=== PATIENT | female | born 2000 | race Hispanic/Latino ===

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

== ENCOUNTER 2020-03-13 10:10 | Outpatient (CLI) | payer OTHER, SELFPAY ==
[2020-03-13 11:48] LABS: Basophils Absolute Auto 0.1 K/mm3 (0.0-0.1); Basophils Percent Auto 0.4 % (0.2-1.2); Eosinophils Absolute Auto 0.1 K/mm3 (0-0.3); Eosinophils Percent Auto 0.6 % (0-4.4); Hematocrit 31.2 % (37.0-47.0); Hemoglobin 10.5 g/dL (12.0-15.0); Immature Granulocyte Absolute 0.21 K/mm3 (0.00-0.031); Immature Granulocyte Percent A 1.5 % (0-0.5); Lymphocytes Absolute Auto 1.79 K/mm3 (0.9-3.2); Lymphocytes Percent Auto 13.1 % (18.3-44.2); Mean Corpuscular HGB Conc 33.7 g/dl (32-36); Mean Corpuscular Hemoglobin 31.7 pg (26-34); Mean Corpuscular Volume 94.3 fl (80-100); Monocytes Absolute Auto 1.1 K/mm3 (0.1-0.6); Monocytes Percent Auto 7.7 % (2.6-8.5); Neutrophils Absolute Auto 10.5 K/mm3 (1.3-6.7); Neutrophils Percent Auto 76.7 % (45.5-73.1); Platelet Count Result 321 k/mm3 (150-375); Red Blood Count 3.31 M/mm3 (4.2-5.4); Red Cell Distribution Width 11.9 % (11.5-14.5); White Blood Count 13.7 K/mm3 (4.5-10.0)
[2020-03-13 11:58] LABS: Glucose 1 Hour PP 50gm Dose 65 mg/dL
== END 2020-03-13 10:11 | disposition home or self-care (01) ==
PROVIDERS: PCP Student in an Organized Health Care Education/Training Program; Visit Provider Student in an Organized Health Care Education/Training Program
DX: Z34.02 Encounter for supervision of normal first pregnancy, second trimester (principal); Z3A.00 Weeks of gestation of pregnancy not specified
CPT/HCPCS: 36415; 82947; 85025

== ENCOUNTER 2020-05-07 18:46 | Observation (INO) | payer OTHER, SELFPAY ==
[2020-05-07] VITALS (25 sets, daily range): BP systolic 113; BP diastolic 61; PULSE 82–106; TEMP 36.5; O2SAT 98–100; BMI 25.0
--- NOTE | 2020-05-07 20:36 | OBADM ---
This patient, Queenie Ramachandran, admitted to the OB room OB Post 117 for observation. Patient/family oriented to hospital policies and general routines including ID bracelet, bed and alarms, visiting hours, pain management, procedures, bathroom and other care routines, personal items, smoking policy, room service/diet, and visiting hours. Patient/Family are encouraged to report perceived risks to care and to ask questions if they do not understand what they are told or what they should do.
[2020-05-07] MEDS: TERBUTALINE SULFATE 1 MG/ML VIAL 0.25 MG SUB-Q (22:33)
[2020-05-07 22:59] LABS: Add Urine Microscopic? YES; Appearance Urine Clear (Clear); Bacteria Urine Trace /hpf; Bilirubin Urine Negative (Negative); Blood Urine 2+ (Negative); Color Urine Straw (Yellow); Glucose Urine UA Negative (Negative); Ketones Urine Negative (Negative); Leukocyte Esterase Ur 3+ LEU/UL (Negative); Nitrate Urine Negative (Negative); Protein Urine Negative (Negative); Specific Grav Ur 1.005 (1.001-1.035); Squamous Epithelial Cell Urine Occasional /hpf (Few); Urobilinogen Urine Negative mg/dL (<2.0)
[2020-05-08 00:04] VITALS: PULSE 88; O2SAT 98
[2020-05-08 00:09] VITALS: PULSE 95; O2SAT 97
[2020-05-08 00:14] VITALS: PULSE 87; O2SAT 98
--- NOTE | 2020-06-06 16:20 | PM.OBTRLD ---
OB - Triage/Final Diagnosis Evaluation Laboratory results: Laboratory Tests 05/07/20 22:37 Urine Color Straw Urine Appearance Clear Urine pH 7.0 Ur Specific [place] 1.005 Urine Protein Negative Urine Glucose (UA) Negative Urine Ketones Negative Ur Blood (Man) 2+ H Urine Nitrate Negative Urine Bilirubin Negative Urine Urobilinogen Negative Leukocyte Esterase Rfl 3+ H Urine RBC 11-20 H Urine WBC 4-6 H Ur Squamous Epith Cells Occasional Urine Bacteria Trace Final Diagnosis (1) labor in third trimester: Code(s): O60.03 - labor without delivery, third trimester Status: Acute
--- NOTE | 2020-06-06 16:22 | PM.OBTRLD ---
OB - Triage/Final Diagnosis Evaluation Laboratory results: Laboratory Tests 05/07/20 22:37 Urine Color Straw Urine Appearance Clear Urine pH 7.0 Ur Specific [place] 1.005 Urine Protein Negative Urine Glucose (UA) Negative Urine Ketones Negative Ur Blood (Man) 2+ H Urine Nitrate Negative Urine Bilirubin Negative Urine Urobilinogen Negative Leukocyte Esterase Rfl 3+ H Urine RBC 11-20 H Urine WBC 4-6 H Ur Squamous Epith Cells Occasional Urine Bacteria Trace Final Diagnosis (1) labor in third trimester: Code(s): O60.03 - labor without delivery, third trimester Status: Acute
== END 2020-05-08 00:37 | disposition home or self-care (01) ==
PROVIDERS: Admitting Provider Student in an Organized Health Care Education/Training Program; Visit Provider Student in an Organized Health Care Education/Training Program
DX: O26.859 Spotting complicating pregnancy, unspecified trimester (principal); O60.00 Preterm labor without delivery, unspecified trimester; Z3A.00 Weeks of gestation of pregnancy not specified
CPT/HCPCS: 81001; 96372; G0378; G0379; J3105

== ENCOUNTER 2020-05-09 09:19 | Observation (INO) | payer OTHER, SELFPAY ==
[2020-05-09 09:30] VITALS: TEMP 36.5
[2020-05-09 10:00] VITALS: BMI 24.5
--- NOTE | 2020-05-09 10:00 | OBADM ---
This patient, Queenie Ramachandran, admitted to the OB room 117 at 0919 for observation for contractions. Patient/family oriented to hospital policies and general routines including ID bracelet, bed and alarms, visiting hours, pain management, procedures, bathroom and other care routines, personal items, smoking policy, room service/diet, and visiting hours. Patient/Family are encouraged to report perceived risks to care and to ask questions if they do not understand what they are told or what they should do.
[2020-05-09 11:05] VITALS: BP 112/56; PULSE 96
[2020-05-09] MEDS: NIFEdipine 10 MG CAPSULE PO (11:07)
[2020-05-09] MEDS: BETAMETHASONE SOD PHOS/ACETATE 30 MG/5 ML VIAL 12 MG IM (11:10)
[2020-05-09 12:01] VITALS: BP 98/52; PULSE 98
--- NOTE | 2020-05-09 12:27 | PM.OBPNVD ---
OB - PN: Subj Subjective Date/time seen: 05/09/20 12:27 Pt seen at bedside. Contractions have spaced out after Procardia administration. SVE mostly unchanged 2-3/80/-3. s/p Celestone x 1 dose. EFM reassuring. Plan is to d/c pt home in stable condition. Rx for Procardia sent to pharmacy. Pt instructed to return to L&D tomorrow for second dose of Celestone. Reminded of strict pelvic rest. Pt implied understanding. All questions and concerns addressed. OB - PN A/P Time Spent With Patient Time: Total time spent is greater than 50% in coordination of care (as documented) at patient's floor/unit and/or counseling patient:
[2020-05-09 13:18] LABS: Add Urine Microscopic? YES; Appearance Urine Clear (Clear); Bacteria Urine Trace /hpf; Bilirubin Urine Negative (Negative); Blood Urine 1+ (Negative); Color Urine Straw (Yellow); Glucose Urine UA Negative (Negative); Ketones Urine Negative (Negative); Leukocyte Esterase Ur 3+ LEU/UL (Negative); Mucus Urine Rare /lpf; Nitrate Urine Negative (Negative); Protein Urine Negative (Negative); Specific Grav Ur 1.006 (1.001-1.035); Squamous Epithelial Cell Urine Occasional /hpf (Few); Urobilinogen Urine Negative mg/dL (<2.0)
== END 2020-05-09 13:27 | disposition home or self-care (01) ==
PROVIDERS: Admitting Provider Student in an Organized Health Care Education/Training Program; Visit Provider Student in an Organized Health Care Education/Training Program
DX: O60.00 Preterm labor without delivery, unspecified trimester (principal); Z3A.00 Weeks of gestation of pregnancy not specified
CPT/HCPCS: 81001; 87086; 87088; 96372; A9270; G0378; G0379; J0702

== ENCOUNTER 2020-05-10 13:02 | Outpatient (CLI) | payer OTHER, SELFPAY ==
[2020-05-10] MEDS: BETAMETHASONE SOD PHOS/ACETATE 30 MG/5 ML VIAL 12 MG IM (13:28)
== END 2020-05-10 13:30 | disposition home or self-care (01) ==
LOC: ANHOBOP 13:10 → ANHLDR 13:13
PROVIDERS: Visit Provider Student in an Organized Health Care Education/Training Program
DX: Z34.90 Encounter for supervision of normal pregnancy, unspecified, unspecified trimester (principal); Z3A.00 Weeks of gestation of pregnancy not specified
CPT/HCPCS: 96372; 99199; J0702

== ENCOUNTER 2020-05-13 15:41 | Observation (INO) | payer OTHER, SELFPAY ==
--- NOTE | 2020-05-13 15:41 | OBADM ---
This patient, Queenie Ramachandran, admitted to the OB room OB Post 112 for observation. Patient/family oriented to hospital policies and general routines including ID bracelet, bed and alarms, visiting hours, pain management, procedures, bathroom and other care routines, personal items, smoking policy, room service/diet, and visiting hours. Patient/Family are encouraged to report perceived risks to care and to ask questions if they do not understand what they are told or what they should do.
[2020-05-13 16:15] VITALS: BP 111/54; PULSE 107
[2020-05-13 16:30] VITALS: BP 102/51; PULSE 106
[2020-05-13 16:45] VITALS: BP 103/56; PULSE 109
[2020-05-13 17:00] VITALS: BP 98/55; PULSE 111
[2020-05-13 17:15] VITALS: BP 112/67; PULSE 106
[2020-05-13 18:52] VITALS: BMI 25.4
--- NOTE | 2020-06-06 16:23 | PM.OBTRLD ---
OB - Triage/Final Diagnosis Final Diagnosis (1) labor in third trimester: Code(s): O60.03 - labor without delivery, third trimester Status: Acute
== END 2020-05-13 21:30 | disposition home or self-care (01) ==
PROVIDERS: Admitting Provider Student in an Organized Health Care Education/Training Program; Visit Provider Student in an Organized Health Care Education/Training Program
DX: O60.03 Preterm labor without delivery, third trimester (principal); Z3A.00 Weeks of gestation of pregnancy not specified
CPT/HCPCS: G0378; G0379

== ENCOUNTER 2020-05-31 17:16 | Inpatient (IN) | payer OTHER, SELFPAY ==
[2020-05-31] VITALS (9 sets, daily range): BP systolic 113–144; BP diastolic 54–106; PULSE 75–97; RESP 20; TEMP 36.8–37.1; BMI 26.2
--- NOTE | 2020-05-31 17:16 | LDADM ---
This patient, Queenie Ramachandran, was admitted to Labor/Delivery/Recovery 106 on 05/31/20 at 17:16. Plans for labor, pain management and were discussed with patient. Patient/family oriented to hospital policies and general routines including ID bracelet, bed and alarms, visiting hours, pain management, procedures, bathroom and other care routines, personal items, smoking policy, room service/diet and guest tray routines, infant security routines, and visiting hours. Patient/Family are encouraged to report perceived risks to care and to ask questions if they do not understand what they are told or what they should do. See OBIX for further documentation.
[2020-05-31 20:17] LABS: Basophils Absolute Auto 0.1 K/mm3 (0.0-0.1); Basophils Percent Auto 0.4 % (0.2-1.2); Eosinophils Percent Auto 0.4 % (0-4.4); Hematocrit 33.6 % (37.0-47.0); Hemoglobin 11.3 g/dL (12.0-15.0); Immature Granulocyte Absolute 0.07 K/mm3 (0.00-0.031); Immature Granulocyte Percent A 0.6 % (0-0.5); Lymphocytes Absolute Auto 2.51 K/mm3 (0.9-3.2); Lymphocytes Percent Auto 22.1 % (18.3-44.2); Mean Corpuscular HGB Conc 33.6 g/dl (32-36); Mean Corpuscular Volume 89.1 fl (80-100); Mean Platelet Volume 11.5 fl (7.4-10.4); Monocytes Absolute Auto 0.9 K/mm3 (0.1-0.6); Monocytes Percent Auto 8.1 % (2.6-8.5); Neutrophils Absolute Auto 7.8 K/mm3 (1.3-6.7); Neutrophils Percent Auto 68.4 % (45.5-73.1); Platelet Count Result 273 k/mm3 (150-375); Red Blood Count 3.77 M/mm3 (4.2-5.4); Red Cell Distribution Width 13.4 % (11.5-14.5); White Blood Count 11.4 K/mm3 (4.5-10.0)
[2020-05-31 21:11] LABS: HIV 1/2 Ab P24 Ag Result Negative (Negative)
[2020-06-01] VITALS (99 sets, daily range): BP systolic 102–150; BP diastolic 50–90; PULSE 65–119; RESP 18–20; TEMP 36.9–37.6; O2SAT 99–100
[2020-06-01] MEDS: OXYTOCIN 30 UNITS/NS 500 ML 30 UNITS/500 ML BAG IV CONT (01:36)
[2020-06-01] MEDS: LACTATED RINGERS 1,000 ML 125 ML IV CONT ×3 (01:36→08:57)
--- NOTE | 2020-06-01 06:52 | WPDANESEPP ---
Anes - Eval Pre Procedure Procedure: labor epidural Date/Time: 06/01/20 06:52 Surgeon: phoebe triana m.d. Preop Diagnosis: pain during labor Pre Op Diagnosis: Contractions Patient Data Age: 20 Gender: F Height: 1.57 m Weight: 65 kg Last Vital Signs Temp 36.9 C 06/01/20 04:08 Pulse 105 H 06/01/20 06:45 Resp 20 06/01/20 04:08 BP 118/61 06/01/20 06:45 Pulse Ox 99 06/01/20 05:08 Allergies Allergy/AdvReac Type Severity Reaction Status Date / Time No Known Allergies Allergy Verified 05/31/20 21:35 Home Medications Medication Instructions Recorded Confirmed Type PNV cmb#95-ferrous fumarate-FA 1 tablet PO DAILY 11/24/19 05/31/20 History [] breast pump #1 each 05/09/20 05/31/20 Rx Laboratory Tests 05/31/20 05/31/20 05/31/20 20:12 20:12 20:12 WBC 11.4 K/mm3 H K/mm3 (4.5-10.0) RBC 3.77 M/mm3 L M/mm3 (4.2-5.4) Hgb 11.3 g/dL L g/dL (12.0-15.0) Hct 33.6 % L % (37.0-47.0) MCV 89.1 fl fl (80-100) MCH 30.0 pg pg (26-34) MCHC 33.6 g/dl g/dl (32-36) RDW 13.4 % % (11.5-14.5) Plt Count 273 k/mm3 k/mm3 (150-375) MPV 11.5 fl H fl (7.4-10.4) Immature Gran % (Auto) 0.6 % H % (0-0.5) Neut % (Auto) 68.4 % % (45.5-73.1) Lymph % (Auto) 22.1 % % (18.3-44.2) [place] % (Auto) 8.1 % % (2.6-8.5) Eos % (Auto) 0.4 % % (0-4.4) Baso % (Auto) 0.4 % % (0.2-1.2) Lymph # (Auto) 2.51 K/mm3 K/mm3 (0.9-3.2) [place] # (Auto) 0.9 K/mm3 H K/mm3 (0.1-0.6) Eos # (Auto) 0.0 K/mm3 K/mm3 (0-0.3) Baso # (Auto) 0.1 K/mm3 K/mm3 (0.0-0.1) Abs Immat Gran (auto) 0.07 K/mm3 H K/mm3 (0.00-0.031) Absolute Neuts (auto) 7.8 K/mm3 H K/mm3 (1.3-6.7) Absolute Nucleated RBC 0.0 K/mm3 K/mm3 (0.0-0.012) Nucleated RBC % 0.0 % % (0.0-0.2) RPR Pending HIV 1&2 Ab/P24 Ag 4thGn Negative (Negative) Blood Type Antibody Screen 05/31/20 20:12 WBC RBC Hgb Hct MCV MCH MCHC RDW Plt Count MPV Immature Gran % (Auto) Neut % (Auto) Lymph % (Auto) [place] % (Auto) Eos % (Auto) Baso % (Auto) Lymph # (Auto) [place] # (Auto) Eos # (Auto) Baso # (Auto) Abs Immat Gran (auto) Absolute Neuts (auto) Absolute Nucleated RBC Nucleated RBC % RPR HIV 1&2 Ab/P24 Ag 4thGn Blood Type A Positive Antibody Screen Negative Patient hx anesthesia problems: none Family hx anesthesia problems: none PMFSH Social History Social History Smoking status: Former smoker Tobacco type: cigarettes Substance use: never Gender identity (if verbalized by the patient): Female Spiritual care concerns: No Exam Day of Procedure 06/01/20 06:52
--- NOTE | 2020-06-01 08:10 | PM.IMHP ---
H&P: HPI History of Present Illness Date/Time: 06/01/20 08:10 Chief complaint: Contractions Narrative: Queenie Ramachandran is a 20 year old female at 38 weeks admitted in active labor. She had cervical change from 3 to 4cm. LMP 09/08/19 EDC 06/14/20 consistent with a 7 week ultrasound. PNC significant for labor at approximately 34 weeks. She was dilated to 2-3. She did receive Celestone. She is rubella nonimmune. Labs: A+, CF-neg, HgbSol-neg, Vit D-30, Ur Cx-neg, TSH-nl, HIV neg, Varic-Im, Rub-NI, HepbSag-neg, RPR NR, 1 hr- 65, GBS-neg. Review of Systems Review of Systems: All systems reviewed & are unremarkable except as noted in HPI and below Constitutional: Constitutional: Reports no additional constitutional complaints and Denies headache(s) Eyes: Eyes: Denies spots in vision ENT: Reports system reviewed and no additional complaints, except as documented and Denies headache(s) Cardiovascular: Cardiovascular: Denies chest pain and Denies dyspnea Respiratory: Respiratory: Denies dyspnea Gastrointestinal: Gastrointestinal: Reports no additional gastrointestinal complaints Genitourinary: Genitourinary: Reports amenorrhea Musculoskeletal: Musculoskeletal: Reports no additional musculoskeletal complaints Integumentary/Breasts: Skin/Breast: Denies breast mass and Denies rash Neurologic: Denies headache(s) Psychiatric: Psychiatric: Reports no additional psychiatric complaints PMFSH Past Medical History Medical History Anemia 1 Migraines No significant past medical history Surgical History Surgical History No history of previous surgery No significant past surgical history Family History Family History Other Malignant neoplasm of brain Social History Social History Smoking status: Former smoker Tobacco type: cigarettes Substance use: never Gender identity (if verbalized by the patient): Female Spiritual care concerns: No Meds Home Medications and Allergies Home Medications Medication Instructions Recorded Confirmed Type PNV cmb#95-ferrous fumarate-FA 1 tablet PO DAILY 11/24/19 05/31/20 History [] breast pump #1 each 05/09/20 05/31/20 Rx Allergies Allergy/AdvReac Type Severity Reaction Status Date / Time No Known Allergies Allergy Verified 05/31/20 21:35 Vital Signs Vital Signs - 24 hr 05/31/20 18:00 05/31/20 18:08 05/31/20 19:47 Temperature 98.4 F 98.3 F Pulse Rate 97 Respiratory Rate Blood Pressure 120/73 Pulse Oximetry 05/31/20 21:29 05/31/20 21:30 05/31/20 21:45 Temperature Pulse Rate 80 75 84 Respiratory Rate Blood Pressure 113/66 113/54 L 131/106 H Pulse Oximetry 05/31/20 22:00 05/31/20 22:10 05/31/20 23:44 Temperature 98.6 F 98.7 F Pulse Rate 89 96 Respiratory Rate 20 20 Blood Pressure 144/87 H 124/55 L Pulse Oximetry 06/01/20 01:34 06/01/20 02:09 06/01/20 02:15 Temperature Pulse Rate 82 86 90 Respiratory Rate Blood Pressure 130/71 108/59 L 116/60 Pulse Oximetry 06/01/20 02:16 06/01/20 02:30 06/01/20 02:45 Temperature Pulse Rate 87 92 86 Respiratory Rate Blood Pressure 107/52 L 123/67 117/58 L Pulse Oximetry 06/01/20 03:00 06/01/20 03:15 06/01/20 03:30 Temperature Pulse Rate 76 74 89 Respiratory Rate Blood Pressure 102/54 L 103/52 L 113/75 Pulse Oximetry 06/01/20 03:46 06/01/20 04:00 06/01/20 04:08 Temperature 98.5 F Pulse Rate 87 90 Respiratory Rate 20 Blood Pressure 133/71 126/66 Pulse Oximetry 06/01/20 04:15 06/01/20 04:30 06/01/20 04:37 Temperature Pulse Rate 98 93 Respiratory Rate Blood Pressure 116/68 122/70 Pulse Oximetry 99 06/01/20 04:42 06/01/20 04:45 06/01/20 04
--- NOTE | 2020-06-01 08:21 | P.PNOB_ITS ---
OB - PN: Subj Subjective Date/time seen: 06/01/20 08:21 FHT 130, Cat 1, ctx q 1-3, AROM clear 0750, cervix /-1. Continue expectant management. OB - PN: Obj Data Labs CBC & Chem 7: 05/31/20 20:12 Labs: Laboratory Results - last 24 hr 05/31/20 05/31/20 05/31/20 20:12 20:12 20:12 WBC 11.4 H RBC 3.77 L Hgb 11.3 L Hct 33.6 L MCV 89.1 MCH 30.0 MCHC 33.6 RDW 13.4 Plt Count 273 MPV 11.5 H Immature Gran % (Auto) 0.6 H Neut % (Auto) 68.4 Lymph % (Auto) 22.1 [place] % (Auto) 8.1 Eos % (Auto) 0.4 Baso % (Auto) 0.4 Lymph # (Auto) 2.51 [place] # (Auto) 0.9 H Eos # (Auto) 0.0 Baso # (Auto) 0.1 Abs Immat Gran (auto) 0.07 H Absolute Neuts (auto) 7.8 H Absolute Nucleated RBC 0.0 Nucleated RBC % 0.0 HIV 1&2 Ab/P24 Ag 4thGn Negative Blood Type A Positive Antibody Screen Negative OB - PN A/P Time Spent With Patient Time: Total time spent is greater than 50% in coordination of care (as documented) at patient's floor/unit and/or counseling patient:
--- NOTE | 2020-06-01 15:54 | PC.NURSE ---
system assessments and admission catagories done at 1355 were done on the wrong pt. attempt to undo some and unable to do so--christina hernandez rn
--- NOTE | 2020-06-01 18:28 | PM.OBPRVD ---
OB - Delivery Note Procedure Delivery date: 06/01/20 Procedure: Spontaneous vaginal delivery events: Labor < 37 Weeks and Labor Augmentation Intrapartal events: Prolonged Latent Phase Delivery augmentation: rupture of membranes and pitocin Delivery monitor: external FHT and internal uterine Route of delivery: Episiotomy description: None Laceration description: Labial (right superior) Delivery repair: vicryl (3.0 vicryl) Specimen: Yes (Placenta) Estimated blood loss (mL): 350 Anesthesia type: Epidural Disposition: floor Complications: Mild shoulder dystocia relieved with modified Jenni and suprapubic pressure. Left compound hand presentation. Narrative: She was admitted to labor and delivery in labor after dilating from 3-4cm. She was monitored and had frequent irregular contractions. She was started on Pitocin augmentation at 0100 on 06/01/20. She had frequent contraction on small dose of Pitocin and the Pitocin was stopped. On my exam at 0745 cervix 4/90/-1 and AROM was performed. Clear fluid noted. She continue to have frequent contractions with minimal change. Pitocin was started again. She did request and receive epidural. An IUPC was placed due to the frequent contractions and to increase Pitocin appropriately. She started to progress in the active stage approximately 230. She dilated to complete +1 station. She started pushing. At that time her temperature was 100.4 She pushed well and delivered a female infant at 1758. After delivery of head, the head restituted to the left. There was a compound hand presentation and a shoulder dystocia. The shoulder was gradually coming under the pubic bone with modified Jenni and suprapubic pressure. Dystocia lasted approximately 40sec. The rest of the baby was delivered. The baby was placed on maternal abdomen and then shortly taken to warmer. Cord blood and cord gases were obtained. Large placenta delivered intact with trailing membranes. There were a small amount of membranes swept from lower uterine segment. The uterine tone did improve. She sustained a right superior labial minora sulcus tear. Hemostasis obtained with 3 figure of eight stitches of 0.vicryl, EBL 350cc. Patient tolerated procedure well. Baby Date of : 06/01/20 Time of : 17:58 Weeks of gestation at delivery: 38 Weight (pounds): 8 Weight (ounces): 10 presentation: vertex position: Right Occiput Anterior Placenta delivery description: Spontaneous (trailing membranes, small amount of membranes swept from lower uterine segment, uterine tone improved) and Uterine Exploration cord vessel description: 3 Vessels and Clamped/Cut score one minute: 7 score five minutes: 9
[2020-06-01] MEDS: OXYTOCIN 30 UNITS/NS 500 ML 30 UNITS/500 ML BAG 125 UNITS IV CONT (19:12)
[2020-06-01] MEDS: WITCH HAZEL 40 PADS 1 PAD TOPICAL (20:00)
[2020-06-01] MEDS: BENZOCAINE 20% AER SPR (*SP) 56 GM CAN 1 SPRAY TOPICAL (20:00)
[2020-06-01] MEDS: IBUPROFEN 600 MG TABLET PO (20:00)
--- NOTE | 2020-06-01 20:56 | PC.NURSE ---
Patient transferred to post room #292 via wheelchair. Support person present. Oriented to unit, room, information board, rooming in, admission packet and security measures. Patient verbalizes understanding.
[2020-06-02 05:29] LABS: Hematocrit 27.9 % (37.0-47.0); Hemoglobin 9.2 g/dL (12.0-15.0)
[2020-06-02 08:00] VITALS: BP 113/64; PULSE 90; RESP 18; TEMP 36.6
--- NOTE | 2020-06-02 08:20 | P.PNOB_ITS ---
OB - PN: Subj Subjective Date/time seen: 06/02/20 08:20 No complaints. She is breast and supplementing. No lightheadedness/dizziness. Patient comments: pain well controlled, tolerating diet and other (Decreasing lochia.) baby status: doing well OB - PN: Obj Data Labs CBC & Chem 7: 06/02/20 03:41 Labs: Laboratory Results - last 24 hr 06/02/20 03:41 Hgb 9.2 L Hct 27.9 L OB - PN A/P Plan day: 1 Plan: routine care Comments: Patient doing well. Afebrile. Asymptomatic anemia. Continue routine care. Time Spent With Patient Time: Total time spent is greater than 50% in coordination of care (as documente d) at patient's floor/unit and/or counseling patient: Review of Systems Review of Systems: All systems reviewed & are unremarkable except as noted in HPI and below Constitutional: Constitutional: Reports no additional constitutional complain ts Cardiovascular: Cardiovascular: Denies dyspnea Respiratory: Respiratory: Denies dyspnea Gastrointestinal: Gastrointestinal: Reports no additional gastrointestinal complaints and Denies abdominal pain Genitourinary: Genitourinary: Reports no additional female genitourinary complaints Exam Const: General: no acute distress, alert and awake Resp: Effort & Inspection: normal respiratory effort GI: GI Palp: No Tenderness to palpation present (GI) Other: Fundus nontender, below umbilicus Psych: Appearance: grossly normal Affect: normal affect Other: Abd: fundus firm below umbilicus, nontender labia healing Ext: nontender
[2020-06-02 08:21] LABS: Rapid Plasma Reagin Non-Reactive (NonReactive)
--- NOTE | 2020-06-02 08:56 | WPDANLDPN2 ---
Anes-Prog Note L&D Date/Time: 06/02/20 08:56 Comfortable throughout: labor and delivery Neuraxial method: epidural Epidural/Spinal procedure site: clean & non-tender Neuro status: Neuro function grossly intact. Cardiovascular status: normal Respiratory status: normal Airway patency: baseline Mental status: baseline Post-Op hydration status: normal Vital Signs: Last Vital Signs Temp 98.9 F 06/01/20 21:00 Pulse 66 06/01/20 21:00 Resp 18 06/01/20 21:00 BP 131/86 06/01/20 21:00 Pulse Ox 100 06/01/20 21:00 I/O: Intake & Output 06/01/20 06/02/20 06/02/20 23:59 07:59 15:59 Intake Total 1150 Output Total 85 Balance 1065 Patient feedback: Patient satisfied with anesthetic care.
[2020-06-02] MEDS: IBUPROFEN 600 MG TABLET PO ×2 (09:21→17:05)
[2020-06-02] MEDS: POLYSACCHARIDE IRON COMPLEX 150 MG CAPSULE PO ×2 (09:21→17:04)
[2020-06-02] MEDS: BENZOCAINE 20% AER SPR (*SP) 56 GM CAN 1 SPRAY TOPICAL (09:21)
[2020-06-02] MEDS: LANOLIN (LANSINOH) 7.5 GM CREAM 1 APPLIC TOPICAL (09:22)
[2020-06-02] MEDS: DOCUSATE SODIUM 100 MG CAPSULE PO ×2 (09:22→17:05)
--- NOTE | 2020-06-02 12:00 | PC.NURSE ---
Consulted with patient, mother reports difficulties with latching. Mother states she will breast and bottle feed until her milk is in then she will wean from formula. Reviewed infant feeding cues, frequencies, duration of feedings, feeding elimination flow sheet, and signs of adequate intake. Demonstrated stimulation techniques to wake for feeding. Assisted with to breast. Reviewed positioning/alignment in cross cradle, holding breast in U hold and guided asymmetrical latch on. Discussed rational for each. Several attempts before was able to latch correctly. nursed eagerly, with steady draws and frequent swallowing noted. Reviewed signs of a correct latch, effective nursing and suck swallow ratio. Infant was able to maintain latch without discomfort to mother. Nipple care Advised to stimulate to keep infant awake and nursing effectively for increased intake and to assist with maintaining deep latch. Demonstrated how to adjust latch more deeply while feeding. Instructed mother to call out for RN assistance if she is unable to latch infant for feeding or she has discomfort with nursing. Instructed feeding should be initiated three hours from start of last feeding or if feeding cues are noted before. Mother voiced understanding of information shared.
[2020-06-02] MEDS: WITCH HAZEL 40 PADS 1 PAD TOPICAL (17:04)
[2020-06-02 18:15] VITALS: BP 107/67; PULSE 84; RESP 17; TEMP 36.7; O2SAT 99
[2020-06-02] MEDS: TETANUS,DIPHTHERIA,AC PERTUSSIS ADULT (0.5 ML) BOOSTRIX IM (18:53)
--- NOTE | 2020-06-03 07:20 | PM.OBPNVD ---
OB - PN: Subj Subjective Date/time seen: 06/03/20 07:20 Patient doing well this morning. Reports mild cramping, alleviated with medication. Denies any headache, chest pain, or shortness of breath. Minimal lochia. Ambulating well. Baby well. Breast and bottle feeding. OB - PN: Obj Data Labs CBC & Chem 7: 06/02/20 03:41 Labs: Laboratory Results - last 24 hr 05/31/20 20:12 RPR Non-reactive OB - PN A/P Assessment and Plan (1) Normal spontaneous vaginal delivery: Code(s): O80 - Encounter for full-term uncomplicated delivery Status: Acute Assessment and Plan: doing well discharge home in stable condition emergency precautions reviewed f/u in OB office in 4-6 weeks for visit all questions and concerns addressed Time Spent With Patient Time: Total time spent is greater than 50% in coordination of care (as documented) at patient's floor/unit and/or counseling patient: Exam Const: General: comfortable and no acute distress GI: Inspection: non-distended GI Palp: Yes Soft to palpation and No Tenderness to palpation present (GI) Other: fundus below umbilicus Extrem: Right lower extremity: no edema Left lower extremity: no edema Other: no calf tenderness
--- NOTE | 2020-06-03 07:22 | P.DS_ITS ---
OB - DS: Summary OB Procedures : None OB Procedures Intrapartum: Spontaneous Vag Delivery OB Procedures: : None Time Spent with Patient Time attestation: Total time spent providing and/or coordinating discharge services: DS: Data Data Completed and Pending Pending studies at discharge: Pending at discharge 06/01/20 18:05 Surgical [PTH] Routine Labs on day of discharge: Labs from last 24 hours 05/31/20 20:12 RPR Non-reactive Discharge Plan Discharge Attending physician on discharge: Nancy Mccartney Discharging Clinician: Nancy Mccartney Anticipated Discharge Date/Time: 06/03/20 07:24 Patient Disposition: Home, Self-Care Activity: as tolerated Diet: as tolerated and regular Discharge Instructions: Call office ([phone]) to schedule a visit in 4-6 weeks. You may take Ibuprofen 600mg every 6 hours as needed for pain. Pain medication may make you constipated. It may be helpful to take an [id number] stool softener, such as Colace and/or Senokot, along with the pain medication to help lessen constipation. Call office or go to ED for pain not controlled with medication, headache, chest pain, shortness of breath, fever, chills, persistent nausea or vomiting, severe abdominal pain, heavy vaginal bleeding >2 pads/hour, foul vaginal discharge or odor, or problems with your breasts. Patient Instructions: Antibiotic Form Stand Alone Forms: General Discharge Information Follow-up/Referrals: Nancy Mccartney MD [Physician] - Discharge Medications: Continued (DME) breast pump [Pump In Style Advanced] Device See Rx Instructions .ROUTE .MEDSUPPLY Qty: 1 RF: 0 PNV cmb#95-ferrous fumarate-FA [] 28 mg iron- 800 mcg Tablet 1 tablet PO DAILY RF: 0 Date of admission: 05/31/20 17:16 Primary Care Provider: PHYSICIAN,TEACHING ARTIST Admitting Provider: Nancy Mccartney Attending physician on admission: Nancy Mccartney Condition: Stable
[2020-06-03 08:00] VITALS: BP 109/69; PULSE 82; RESP 18; TEMP 37.1
--- NOTE | 2020-06-03 09:00 | PC.NURSE ---
Patient viewed the discharge video Mother & Baby Care, The First Two Weeks . Patient was given the opportunity and encouraged to ask questions. Patient verbalized understanding of information shared and has been given the mother/baby guide for home reference.
[2020-06-03] MEDS: DOCUSATE SODIUM 100 MG CAPSULE PO (09:26)
[2020-06-03] MEDS: MULTIVIT/MIN/PREN/FOL AC/IRON TABLET 1 TAB PO (09:26)
[2020-06-03] MEDS: POLYSACCHARIDE IRON COMPLEX 150 MG CAPSULE PO (09:26)
[2020-06-03] MEDS: IBUPROFEN 600 MG TABLET PO (09:26)
--- NOTE | 2020-06-03 10:25 | PC.NURSE ---
Mother is able to independently latch infant with appropriate positioning/alignment. She denies any nipple discomfort, is feeding as required and waking to feed if needed. Infant has had several effective feedings in the past 24 hours, and is currently meeting outcomes for weight, output, jaundice and feeding frequencies. Mother states her feeding plan is to breast and bottle feed with plans to decrease formula as her milk is in. Mother has a breastpump for home use and states she will also pump and bottle feed EBM once her milk is in. Mother will continue to supplement after until seen in follow up due to slight jaundice. Reviewed transition to breast milk, signs of adequate intake, and engorgement/relief. Instructed to call ICP if intake/output less than required. Reviewed regular medications mother is taking. Information provided per Mya. Reviewed community resources on the [facility] website and in the Mom/Baby guide. Information on outpatient services provided. Mother has no further questions at this time.
[2020-06-03] MEDS: MEASLES,MUMPS,RUBELLA VACCINE 0.5 ML VIAL SUB-Q (11:44)
--- NOTE | 2020-06-03 12:14 | PC.NURSE ---
Self care and infant care discharge instructions given including follow up visit date and time. FOB at side. No questions or concerns verbalized. Very pleasant and cooperative.
[2020-06-04 08:47] VITALS: BP 113/67; PULSE 96; RESP 16; TEMP 37.2; O2SAT 99
== END 2020-06-03 13:53 | disposition home or self-care (01) | DRG 560 ==
LOC: ANHLDR 19:58 → ANHOB2 06-01 21:04
PROVIDERS: Admitting Provider Obstetrics & Gynecology; Visit Provider Student in an Organized Health Care Education/Training Program
DX: O99.02 Anemia complicating childbirth (principal); Z37.0 Single live birth; Z3A.38 38 weeks gestation of pregnancy; D64.9 Anemia, unspecified; O36.8330 Maternal care for abnormalities of the fetal heart rate or rhythm, third trimester, not applicable or unspecified; O66.0 Obstructed labor due to shoulder dystocia; O71.4 Obstetric high vaginal laceration alone; O75.2 Pyrexia during labor, not elsewhere classified
CPT/HCPCS: 36415; 85014; 85018; 85025; 86592; 86703; 86850; 86900; 86901; 88307; 90710; 90715; A9270; G0432; J2590; J2795; J3010; J7120

== ENCOUNTER 2020-10-13 15:44 | Outpatient (CLI) | payer OTHER, SELFPAY ==
--- NOTE | ~2020-10-13 | US_ITS ---
EXAMINATION: US OB <=14 wk fetus w TV EXAM DATE: 10/13/2020 16:25 INDICATION: N91.2 - Amenorrhea, unspecified. Dating. 1st trimester. TECHNIQUE: Pelvic obstetrical transabdominal sonogram was performed by a technologist. There are mu ltiple grayscale and Doppler images available for interpretation. There are no earlier studies of th is gestation for comparison. FINDINGS: Uterus measures 13.5 x 10.9 x 6.0 cm. There is intrauterine gestation sac. pole wi th heart rate confirmed at 155 beats per minute. The 2.8 cm crown-rump length corresponds to estimat ed gestational age by ultrasound of 9 weeks 4 days, estimated date of confinement 05/14. Yolk sac is identified. There is no sonographic evidence of subchorionic hemorrhage. The ovaries are morpholo gically normal. There is a nabothian cyst. IMPRESSION: Live intrauterine gestation, age by crown-rump length of 9 weeks 4 days. Reviewed, dictated and finalized at location A. CARE PROVIDER
== END 2020-10-13 15:45 | disposition home or self-care (01) ==
PROVIDERS: Visit Provider Student in an Organized Health Care Education/Training Program
DX: Z34.91 Encounter for supervision of normal pregnancy, unspecified, first trimester (principal); Z3A.09 9 weeks gestation of pregnancy
CPT/HCPCS: 76801; 76817

== ENCOUNTER 2020-10-16 11:19 | Outpatient (CLI) | payer OTHER, SELFPAY ==
[2020-10-16 12:01] LABS: Basophils Absolute Auto 0.1 K/mm3 (0.0-0.1); Basophils Percent Auto 0.6 % (0.2-1.2); Eosinophils Percent Auto 0.4 % (0-4.4); Hematocrit 37.5 % (37.0-47.0); Hemoglobin 12.8 g/dL (12.0-15.0); Immature Granulocyte Absolute 0.03 K/mm3 (0.00-0.031); Immature Granulocyte Percent A 0.4 % (0-0.5); Lymphocytes Absolute Auto 1.79 K/mm3 (0.9-3.2); Lymphocytes Percent Auto 22.9 % (18.3-44.2); Mean Corpuscular HGB Conc 34.1 g/dl (32-36); Mean Corpuscular Hemoglobin 28.9 pg (26-34); Mean Corpuscular Volume 84.7 fl (80-100); Mean Platelet Volume 10.1 fl (7.4-10.4); Monocytes Absolute Auto 0.6 K/mm3 (0.1-0.6); Neutrophils Absolute Auto 5.3 K/mm3 (1.3-6.7); Neutrophils Percent Auto 67.7 % (45.5-73.1); Platelet Count Result 366 k/mm3 (150-375); Red Blood Count 4.43 M/mm3 (4.2-5.4); Red Cell Distribution Width 14.1 % (11.5-14.5); White Blood Count 7.8 K/mm3 (4.5-10.0)
[2020-10-16 12:20] LABS: Add Urine Microscopic? YES; Appearance Urine Cloudy (Clear); Bacteria Urine Trace /hpf; Bilirubin Urine Negative (Negative); Blood Urine Negative (Negative); Color Urine Yellow (Yellow); Glucose Urine UA Negative (Negative); Ketones Urine Negative (Negative); Leukocyte Esterase Ur 2+ LEU/UL (NEGATIVE); Mucus Urine Few /lpf; Nitrate Urine Negative (Negative); Protein Urine Negative (Negative); Specific Grav Ur 1.028 (1.001-1.035); Squamous Epithelial Cell Urine Many /hpf (Few)
[2020-10-16 12:44] LABS: Thyroid Stimulating Hormone 0.272 uIU/mL (0.465-4.680)
[2020-10-16 12:50] LABS: Vitamin D 25 Hydroxy 24.1 ng/mL
[2020-10-16 12:54] LABS: HIV 1/2 Ab P24 Ag Result Negative (Negative)
[2020-10-16 13:06] LABS: Hepatitis B Surface Antigen Negative (Negative); Rubella IgG Antibody 66.1 IU/ML
[2020-10-16 13:22] LABS: Hepatitis C Virus Antibody Negative (Negative)
[2020-10-17 07:34] LABS: Rapid Plasma Reagin Non-Reactive (NonReactive)
== END 2020-10-16 11:20 | disposition home or self-care (01) ==
LOC: ANHLAB 11:21
PROVIDERS: PCP Student in an Organized Health Care Education/Training Program; Visit Provider Student in an Organized Health Care Education/Training Program
DX: Z34.90 Encounter for supervision of normal pregnancy, unspecified, unspecified trimester (principal); Z3A.00 Weeks of gestation of pregnancy not specified
CPT/HCPCS: 36415; 81001; 82306; 84443; 85025; 86592; 86703; 86762; 86787; 86803; 86850; 86900; 86901; 87086; 87340; G0432

== ENCOUNTER 2020-11-18 16:03 | Outpatient (CLI) | payer OTHER, SELFPAY ==
[2020-11-21 05:55] LABS: Triiodothyronine T3 Free 2.7 pg/mL (3.0-4.7)
== END 2020-11-18 16:04 | disposition home or self-care (01) ==
LOC: ANHLAB 16:06
PROVIDERS: Family Provider Emergency Medicine; Visit Provider Student in an Organized Health Care Education/Training Program
DX: R79.89 Other specified abnormal findings of blood chemistry (principal); Z34.90 Encounter for supervision of normal pregnancy, unspecified, unspecified trimester; Z3A.00 Weeks of gestation of pregnancy not specified
CPT/HCPCS: 36415; 84436; 84443; 84481; 87491; 87591

== ENCOUNTER 2020-12-19 10:50 | Outpatient (CLI) | payer OTHER, SELFPAY ==
[2020-12-19 11:24] LABS: Hematocrit 33.2 % (37.0-47.0); Mean Corpuscular HGB Conc 33.1 g/dl (32-36); Mean Corpuscular Hemoglobin 29.3 pg (26-34); Mean Corpuscular Volume 88.5 fl (80-100); Mean Platelet Volume 9.9 fl (7.4-10.4); Platelet Count Result 344 k/mm3 (150-375); Red Blood Count 3.75 M/mm3 (4.2-5.4); Red Cell Distribution Width 13.7 % (11.5-14.5); White Blood Count 9.4 K/mm3 (4.5-10.0)
[2020-12-19 11:34] LABS: Alanine Aminotransferase 10 U/L (4-35); Albumin Level 3.9 g/dL (3.5-5.1); Alkaline Phosphatase 61 U/L (38-126); Anion Gap 5 mmol/L (8-16); Aspartate Amino Transferase 18 U/L (14-36); Bilirubin,Total 0.5 mg/dL (0.2-1.3); Blood Urea Nitrogen 5 mg/dL (7-17); Calcium 8.8 mg/dL (8.4-10.2); Carbon Dioxide 25 mmol/L (22-30); Chloride 106 mmol/L (98-107); Estimated Glomerular Filt Rate > 60; Glucose 77 mg/dL (65-105); Potassium 3.9 mmol/L (3.4-5.0); Sodium 136 mmol/L (137-145)
== END 2020-12-19 10:51 | disposition home or self-care (01) ==
PROVIDERS: Visit Provider Student in an Organized Health Care Education/Training Program
DX: R55 Syncope and collapse (principal); Z34.91 Encounter for supervision of normal pregnancy, unspecified, first trimester; Z3A.00 Weeks of gestation of pregnancy not specified
CPT/HCPCS: 36415; 80053; 85027

== ENCOUNTER 2021-02-13 14:54 | Outpatient (CLI) | payer OTHER, SELFPAY ==
[2021-02-13 16:41] LABS: Basophils Absolute Auto 0.1 K/mm3 (0.0-0.1); Basophils Percent Auto 0.5 % (0.2-1.2); Eosinophils Absolute Auto 0.1 K/mm3 (0-0.3); Eosinophils Percent Auto 0.6 % (0-4.4); Hemoglobin 9.5 g/dL (12.0-15.0); Immature Granulocyte Absolute 0.07 K/mm3 (0.00-0.031); Immature Granulocyte Percent A 0.7 % (0-0.5); Mean Corpuscular HGB Conc 32.8 g/dl (32-36); Mean Corpuscular Hemoglobin 27.7 pg (26-34); Mean Corpuscular Volume 84.5 fl (80-100); Mean Platelet Volume 10.5 fl (7.4-10.4); Monocytes Absolute Auto 0.8 K/mm3 (0.1-0.6); Monocytes Percent Auto 8.7 % (2.6-8.5); Neutrophils Absolute Auto 6.8 K/mm3 (1.3-6.7); Neutrophils Percent Auto 72.5 % (45.5-73.1); Platelet Count Result 288 k/mm3 (150-375); Red Blood Count 3.43 M/mm3 (4.2-5.4); Red Cell Distribution Width 12.5 % (11.5-14.5); White Blood Count 9.4 K/mm3 (4.5-10.0)
[2021-02-13 16:53] LABS: Glucose 1 Hour PP 50gm Dose 96 mg/dL
== END 2021-02-13 14:55 | disposition home or self-care (01) ==
LOC: ANHLAB 14:57
PROVIDERS: Visit Provider Student in an Organized Health Care Education/Training Program
DX: Z34.90 Encounter for supervision of normal pregnancy, unspecified, unspecified trimester (principal); Z3A.00 Weeks of gestation of pregnancy not specified
CPT/HCPCS: 36415; 82947; 85025

== ENCOUNTER 2021-03-24 14:11 | Outpatient (CLI) | payer OTHER, SELFPAY ==
[2021-03-24 14:45] LABS: Basophils Percent Auto 0.4 % (0.2-1.2); Eosinophils Absolute Auto 0.2 K/mm3 (0-0.3); Eosinophils Percent Auto 2.1 % (0-4.4); Hematocrit 29.2 % (37.0-47.0); Hemoglobin 9.2 g/dL (12.0-15.0); Immature Granulocyte Absolute 0.03 K/mm3 (0.00-0.031); Immature Granulocyte Percent A 0.4 % (0-0.5); Lymphocytes Absolute Auto 1.27 K/mm3 (0.9-3.2); Lymphocytes Percent Auto 15.8 % (18.3-44.2); Mean Corpuscular HGB Conc 31.5 g/dl (32-36); Mean Corpuscular Hemoglobin 26.1 pg (26-34); Mean Platelet Volume 10.9 fl (7.4-10.4); Monocytes Absolute Auto 0.7 K/mm3 (0.1-0.6); Monocytes Percent Auto 9.2 % (2.6-8.5); Neutrophils Absolute Auto 5.8 K/mm3 (1.3-6.7); Neutrophils Percent Auto 72.1 % (45.5-73.1); Platelet Count Result 244 k/mm3 (150-375); Red Blood Count 3.52 M/mm3 (4.2-5.4); Red Cell Distribution Width 14.5 % (11.5-14.5); White Blood Count 8.1 K/mm3 (4.5-10.0)
[2021-03-24 15:35] LABS: HIV 1/2 Ab P24 Ag Result Negative (Negative)
[2021-03-25 08:57] LABS: Rapid Plasma Reagin Non-Reactive (NonReactive)
== END 2021-03-24 14:12 | disposition home or self-care (01) ==
PROVIDERS: Visit Provider Student in an Organized Health Care Education/Training Program
DX: Z34.83 Encounter for supervision of other normal pregnancy, third trimester (principal); Z3A.00 Weeks of gestation of pregnancy not specified
CPT/HCPCS: 36415; 85025; 86592; 86703; G0432

== ENCOUNTER 2021-05-03 00:28 | Inpatient (IN) | payer OTHER, SELFPAY ==
[2021-05-03] VITALS (101 sets, daily range): BP systolic 91–135; BP diastolic 31–96; PULSE 64–105; RESP 16–20; TEMP 36.4–36.9; O2SAT 98–100; BMI 25.8
--- NOTE | 2021-05-03 00:51 | OBADM ---
This patient, Queenie Ramachandran, admitted to the OB room Labor/Delivery/Recovery 106 for observation. Patient/family oriented to hospital policies and general routines including ID bracelet, bed and alarms, visiting hours, pain management, procedures, bathroom and other care routines, personal items, smoking policy, room service/diet, and visiting hours. Patient/Family are encouraged to report perceived risks to care and to ask questions if they do not understand what they are told or what they should do.
[2021-05-03] MEDS: LACTATED RINGERS 1,000 ML 125 ML IV CONT ×2 (00:58→10:40)
[2021-05-03 01:04] LABS: Basophils Absolute Auto 0.1 K/mm3 (0.0-0.1); Basophils Percent Auto 0.5 % (0.2-1.2); Eosinophils Absolute Auto 0.1 K/mm3 (0-0.3); Eosinophils Percent Auto 0.8 % (0-4.4); Hematocrit 30.8 % (37.0-47.0); Hemoglobin 9.4 g/dL (12.0-15.0); Immature Granulocyte Absolute 0.08 K/mm3 (0.00-0.031); Immature Granulocyte Percent A 0.7 % (0-0.5); Lymphocytes Absolute Auto 2.36 K/mm3 (0.9-3.2); Lymphocytes Percent Auto 21.2 % (18.3-44.2); Mean Corpuscular HGB Conc 30.5 g/dl (32-36); Mean Corpuscular Volume 78.6 fl (80-100); Mean Platelet Volume 12.1 fl (7.4-10.4); Monocytes Absolute Auto 0.7 K/mm3 (0.1-0.6); Monocytes Percent Auto 6.6 % (2.6-8.5); Neutrophils Absolute Auto 7.8 K/mm3 (1.3-6.7); Neutrophils Percent Auto 70.2 % (45.5-73.1); Platelet Count Result 250 k/mm3 (150-375); Red Blood Count 3.92 M/mm3 (4.2-5.4); Red Cell Distribution Width 15.9 % (11.5-14.5); White Blood Count 11.1 K/mm3 (4.5-10.0)
[2021-05-03] MEDS: OXYTOCIN 30 UNITS/NS 500 ML 30 UNITS/500 ML BAG IV CONT (07:55)
[2021-05-03] MEDS: fentaNYL CITRATE INJ (*CRX) 100 MCG/2 ML VIAL 50 MCG IV PUSH (09:17)
--- NOTE | 2021-05-03 10:01 | WPDANESEPP ---
Anes - Eval Pre Procedure Procedure: Labor Epidural Date/Time: 05/03/21 10:01 Pre Op Diagnosis: ctx Patient Data Age: 21 Gender: F Height: 1.57 m Weight: 64 kg Last Vital Signs Temp 36.6 C 05/03/21 09:12 Pulse 83 05/03/21 09:31 Resp 18 05/03/21 05:12 BP 112/60 05/03/21 09:31 Allergies Allergy/AdvReac Type Severity Reaction Status Date / Time No Known Allergies Allergy Verified 04/29/21 14:03 Home Medications Medication Instructions Recorded Confirmed Type PNV cmb#95-ferrous fumarate-FA 1 tablet PO DAILY 11/24/19 05/03/21 History [] breast pump #1 each 05/09/20 05/03/21 Rx Laboratory Tests 05/03/21 05/03/21 05/03/21 00:57 00:57 00:57 WBC 11.1 K/mm3 H K/mm3 (4.5-10.0) RBC 3.92 M/mm3 L M/mm3 (4.2-5.4) Hgb 9.4 g/dL L g/dL (12.0-15.0) Hct 30.8 % L % (37.0-47.0) MCV 78.6 fl L fl (80-100) MCH 24.0 pg L pg (26-34) MCHC 30.5 g/dl L g/dl (32-36) RDW 15.9 % H % (11.5-14.5) Plt Count 250 k/mm3 k/mm3 (150-375) MPV 12.1 fl H fl (7.4-10.4) Immature Gran % (Auto) 0.7 % H % (0-0.5) Neut % (Auto) 70.2 % % (45.5-73.1) Lymph % (Auto) 21.2 % % (18.3-44.2) [place] % (Auto) 6.6 % % (2.6-8.5) Eos % (Auto) 0.8 % % (0-4.4) Baso % (Auto) 0.5 % % (0.2-1.2) Lymph # (Auto) 2.36 K/mm3 K/mm3 (0.9-3.2) [place] # (Auto) 0.7 K/mm3 H K/mm3 (0.1-0.6) Eos # (Auto) 0.1 K/mm3 K/mm3 (0-0.3) Baso # (Auto) 0.1 K/mm3 K/mm3 (0.0-0.1) Abs Immat Gran (auto) 0.08 K/mm3 H K/mm3 (0.00-0.031) Absolute Neuts (auto) 7.8 K/mm3 H K/mm3 (1.3-6.7) Absolute Nucleated RBC 0.0 K/mm3 K/mm3 (0.0-0.012) Nucleated RBC % 0.0 % % (0.0-0.2) RPR Pending Blood Type A Positive Antibody Screen Negative Patient hx anesthesia problems: none Family hx anesthesia problems: none PMFSH Past Medical History Medical History Anemia History of labor History of vaginal delivery X 1 Migraines Surgical History Surgical History No significant past surgical history Family History Family History Unknown Malignant neoplasm of brain Social History Social History Smoking status: Former smoker Tobacco type: cigarettes Second hand tobacco smoke exposure: No Substance use: never Gender identity (if verbalized by the patient): Female Spiritual care concerns: No Exam Day of Procedure 05/03/21 10:01 Patient weight: normal Heart: regular rate and rhythm Lungs: normal air movement Airway: Mallampati scale class II Neurological: alert and oriented
--- NOTE | 2021-05-03 10:46 | WPDANESEFPP ---
Anes - Eval Final PreProcedure Day of Procedure 05/03/21 10:46 Patient weight: normal Heart: regular rate and rhythm Lungs: normal air movement Airway: Mallampati scale class II ASA classification: II Emergent: no Anesthetic plan: proceed Anesthesia type and monitoring: regional epidural Informed Consent: The patient's anesthetic plan and its attendant risks and benefits were discussed with the patient/family/POA. Questions were solicited and answers provided to the satisfaction of the patient/family/POA.
--- NOTE | 2021-05-03 13:43 | WPDOBADMIT ---
Obstetrics - Admit Note Admission Note: record reviewed. No pertinent additions to the history and/or any subsequent changes in the physical findings that are not consistent with the expected course of the were found. Additions to the history and/or subsequent changes in the physical findings follow. at 38+3 came in with c/o ctx and leaking fluid. Cervix 6-7 cm on admission. GBS negative. Admit for labor. Anticipate .
--- NOTE | 2021-05-03 13:50 | PM.OBPRVD ---
OB - Delivery Note Procedure Delivery date: 05/03/21 Procedure: Intrapartal events: None Induction method: none Delivery augmentation: rupture of membranes and pitocin Delivery monitor: external FHT and external uterine Route of delivery: Laceration Description: None Specimen: No Quantitative Blood Loss (ml): 276 Anesthesia type: Epidural Disposition: floor Baby Date of : 05/03/21 Time of : 13:28 Weeks of gestation at delivery: 38 gender: Female Weight (pounds): 7 Weight (ounces): 13 presentation: vertex position: Right Occiput Anterior Placenta delivery description: Spontaneous cord vessel description: 3 Vessels and Clamped/Cut score one minute: 8 score five minutes: 9
[2021-05-03] MEDS: OXYTOCIN 30 UNITS/NS 500 ML 30 UNITS/500 ML BAG 125 UNITS IV CONT (14:05)
[2021-05-03] MEDS: IBUPROFEN 600 MG TABLET PO ×2 (15:55→23:18)
--- NOTE | 2021-05-03 16:00 | OBPPTRN ---
Patient transferred to post room # 291 via wheelchair. Oriented to unit, room, information board, rooming in, admission packet and security measures. Patient verbalizes understanding.
[2021-05-03] MEDS: POLYSACCHARIDE IRON COMPLEX 150 MG CAPSULE PO (17:57)
[2021-05-04 04:30] VITALS: BP 100/56; PULSE 66; RESP 16; TEMP 36.6; O2SAT 100
[2021-05-04 04:44] LABS: Hematocrit 26.9 % (37.0-47.0); Hemoglobin 7.8 g/dL (12.0-15.0)
--- NOTE | 2021-05-04 07:39 | WPDANLDPN2 ---
Anes-Prog Note L&D Date/Time: 05/04/21 07:39 Comfortable throughout: labor and delivery Neuraxial method: epidural Epidural/Spinal procedure site: clean & non-tender Neuro status: Neuro function grossly intact. Cardiovascular status: normal Respiratory status: normal Airway patency: baseline Mental status: baseline Post-Op hydration status: normal Vital Signs: Last Vital Signs Temp 36.6 C 05/04/21 04:30 Pulse 66 05/04/21 04:30 Resp 16 05/04/21 04:30 BP 100/56 L 05/04/21 04:30 Pulse Ox 100 05/04/21 04:30 Pain score (VAS): 0/10. Patient resting in bed at time of assessment, appears comfortable. Support person at bedside. I/O: Intake & Output 05/03/21 05/03/21 05/04/21 15:59 23:59 07:59 Intake Total 2400 500 Output Total 508 Balance 1892 500 Post-procedural complaints: none Patient feedback: Patient satisfied with anesthetic care.
[2021-05-04] MEDS: DOCUSATE SODIUM 100 MG CAPSULE PO (08:07)
[2021-05-04] MEDS: POLYSACCHARIDE IRON COMPLEX 150 MG CAPSULE PO (08:07)
[2021-05-04] MEDS: MULTIVIT/MIN/PREN/FOL AC/IRON TABLET 1 TAB PO (08:07)
[2021-05-04 08:15] VITALS: BP 100/63; PULSE 78; RESP 18; TEMP 36.8
[2021-05-04 10:09] LABS: Rapid Plasma Reagin Non-Reactive (NonReactive)
--- NOTE | 2021-05-04 10:17 | P.PNOB_ITS ---
OB - PN: Subj Subjective Date/time seen: 05/04/21 10:17 Patient comments: no complaints, pain well controlled and other (Lochia similar to menses) [place] baby status: doing well OB - PN: Obj Data Labs CBC & Chem 7: 05/04/21 04:33 Labs: Laboratory Results - last 24 hr 05/03/21 05/04/21 00:57 04:33 Hgb 7.8 L Hct 26.9 L RPR Non-reactive OB - PN A/P Plan day: 1 (s/p vaginal delivery, doing well) Plan: routine care, discharge home and follow up 6 weeks Time Spent With Patient Time: Total time spent is greater than 50% in coordination of care (as documented) at patient's floor/unit and/or counseling patient: Time with patient: less than 15 minutes Exam Const: General: no acute distress GI: Inspection: other (Fundus firm and nontender at umbilicus) GI Palp: Yes Soft to palpation and No Tenderness to palpation present (GI) Extrem: General: no edema
--- NOTE | 2021-05-04 10:18 | PM.OBDSVD ---
DS: Admitting Diagnosis Admitting Diagnosis Admitting Diagnosis: Full term labor DS: Discharge Diagnosis Discharge Diagnosis (1) Vaginal delivery: Code(s): O80 - Encounter for full-term uncomplicated delivery Status: Acute OB - DS: Summary OB Procedures : None OB Procedures Intrapartum: Spontaneous Vag Delivery OB Procedures: : None Peripartum Data Infant Delivery Method: Natural Vaginal Laceration Description: None complications: none Status at Discharge Functional status at discharge: independent ambulation Overall status at discharge: patient is progressing back to baseline Time Spent with Patient Time attestation: Total time spent providing and/or coordinating discharge services: Time spent: Less than 30 minutes DS: Data Data Completed and Pending Labs on day of discharge: Labs from last 24 hours 05/04/21 05/03/21 04:33 00:57 Hgb 7.8 L Hct 26.9 L RPR Non-reactive Discharge Plan Discharge Attending physician on discharge: Nancy Mccartney Consulting providers: Sandeep Kenyon Discharging Clinician: Jerri Cardona Patient Disposition: Home, Self-Care Activity: may shower and pelvic rest Diet: as tolerated Patient Instructions: Antibiotic Form Stand Alone Forms: General Discharge Information Follow-up/Referrals: Nancy Mccartney MD [Physician] - 6 Weeks Discharge Medications: Continued PNV cmb#95-ferrous fumarate-FA [] 28 mg iron- 800 mcg Tablet 1 tablet PO DAILY RF: 0 No Action (DME) breast pump [Pump In Style Advanced] Device See Rx Instructions .ROUTE .MEDSUPPLY Qty: 1 RF: 0 Date of admission: 05/03/21 00:28 Primary Care Provider: PHYSICIAN,AMMONIA SOLUTION PREPARER Admitting Provider: Nancy Mccartney Attending physician on admission: Nancy Mccartney Condition: Stable
[2021-05-04 12:30] VITALS: BP 111/62; PULSE 91; RESP 20; TEMP 36.6
--- NOTE | 2021-05-04 17:00 | PC.NURSE ---
Mom deciding on food to eat for dinner, encouraged mom to unwrap and attempt to get to breast. Mom told to call out for assistance if needed. Mom states understanding.
--- NOTE | 2021-05-04 17:20 | PC.NURSE ---
Mom holding preparing to breastfeed. Discussed ways to get awake at breast. Mom denies needing any help when offered. Encouraged mom to call out if infant does not latch and breastfeed.
[2021-05-06 10:53] VITALS: BP 117/68; PULSE 100; RESP 16; TEMP 37.1; O2SAT 99
== END 2021-05-04 15:50 | disposition home or self-care (01) | DRG 560 ==
LOC: ANHLDR 01:10 → ANHOB2 05-04 10:22 → ANHLDR 05-06 12:22 → ANHOB2 05-06 12:22
PROVIDERS: Admitting Provider Obstetrics & Gynecology; Visit Provider Obstetrics & Gynecology
DX: O99.02 Anemia complicating childbirth (principal); Z37.0 Single live birth; Z3A.38 38 weeks gestation of pregnancy; D64.9 Anemia, unspecified; O36.8330 Maternal care for abnormalities of the fetal heart rate or rhythm, third trimester, not applicable or unspecified
CPT/HCPCS: 36415; 84112; 85014; 85018; 85025; 86592; 86850; 86900; 86901; A9270; J2590; J2795; J3010; J7120

== ENCOUNTER 2025-05-09 14:41 | Outpatient (CLI) | payer MEDICAID, SELFPAY ==
--- NOTE | ~2025-05-09 | US_ITS ---
EXAM/PROCEDURE: US OB <= 14 weeks fetus - 05/09/2025 14:59 CDT HISTORY: 25 years old Female with N91.2 - Amenorrhea, unspecified COMPARISON: None available. TECHNIQUE: Multiple transvaginal images were obtained. FINdINGS: There is a single, live, intrauterine gestation with a heart rate of 157 bpm. The crown-rump length is 9.1 mm, which is equivalent to a 15 week, 0 day gestation. This gives an estimated date of delive ry of 10/31/2025. 1.5 x 1.7 x 1.4 cm probable nabothian cyst in the cervical area. The gestational sac is unremarkable. There is no myometrial abnormality. The ovaries appear unremark able. No significant free fluid is seen. IMPRESSION: Single live embryo with estimated date of delivery of 10/31/2025. Reviewed, dictated and finalized at location A.
--- OUTSIDE RECORDS SUMMARY | 2025-05-09 14:45 | XMS_ITS | Referral Summary ---
Author Organization [facility] at the [facility] Address [address] [place] [address] Care Team Providers Care Cut To Length Operator Name Role Phone Tina Barraza MD Primary Care Provider [phone] Encounters Date Type Department Care Team Description 04/23/2025 7:52 AM CDT - 04/23/2025 11:59 PM CDT Hospital Encounter [facility] [address] [place] [id number] Amenorrhea, unspecified Discharge Disposition: Discharge to home or self care from Last 3 Months Social History Tobacco Use Types Packs/Day Years Used Date Smoking Tobacco: Never Assessed Comments Unknown Sex and Gender Information Value Date Recorded Sex Assigned at Not on file Legal Sex Female 1:02 PM CDT Gender Identity Not on file Sexual Orientation Not on file Plan of Treatment Not on file Procedures Procedure Name Priority Date/Time Associated Diagnosis Comments US OB UNDER 14 WEEKS Schedule Routine, Read Routine (OP Routine) 04/23/2025 9:12 AM CDT Amenorrhea, unspecified from Last 3 Months Results * US OB Under 14 Weeks (04/23/2025 9:12 AM CDT) Anatomical Region Laterality Modality Abdomen N/A Ultrasound 04/28/2025 10:5 5 PM CDT Narrative 04/28/2025 11:00 PM CDT EXAM DESCRIPTION: US OB UNDER 14 WEEKS REASON FOR STUDY: AMENORRHEA, UNSPECIFIED. EVALUATE FOR DATING. TECHNIQUE: Transabdominal images acquired of the pelvis. COMPARISON: No prior FINDINGS: Clinical gestational age: 12 weeks 2 days Clinical estimated Due Date: November 03, 2025 Intrauterine gestational sac: Present Subchorionic bleed: No Placenta: Not identified [place]-rump length: 5.8 cm heart rate: 167 bpm Gestational age by this ultrasound: 12 weeks 2 days AMANDA by this ultrasound: November 03, 2025 Uterus: The uterus otherwise appears normal measuring 15.6 x 5.4 x 13.1 cm. Right Ovary/Adnexa: The right ovary measures 3.4 x 3.8 x 2.5 cm. The right ovary appears unremarkable. No adnexal mass. Left Ovary/Adnexa: The left ovary measures 2.6 x 2.7 by 2.2 cm. The left ovary appears unremarkable. No adnexal mass. Free Fluid: None. Other Findings: None. IMPRESSION: 1. Single live intrauterine with average ultrasound age of 12 weeks 2 days with estimated date of delivery of November 03, 2025. THIS IS AN ELECTRONICALLY VERIFIED FINAL REPORT 04/28/2025 11:00 PM - Electronically signed by Patricio Flores M.D. MJ: DONNA Report ID: [id number] Reading Location: [id number] Procedure Note Patricio Flores MD - 04/28/2025 EXAM DESCRIPTION: US OB UNDER 14 WEEKS REASON FOR STUDY: AMENORRHEA, UNSPECIFIED. EVALUATE FOR DATING. TECHNIQUE: Transabdominal images acquired of the pelvis. COMPARISON: No prior FINDINGS: Clinical gestational age: 12 weeks 2 days Clinical estimated Due Date: November 03, 2025 Intrauterine gestational sac: Present Subchorionic bleed: No Placenta: Not identified [place]-rump length: 5.8 cm heart rate: 167 bpm Gestational age by this ultrasound: 12 weeks 2 days AMANDA by this ultrasound: November 03, 2025 Uterus: The uterus otherwise appears normal measuring 15.6 x 5.4 x 13.1cm. Right Ovary/Adnexa: The right ovary measures 3.4 x 3.8 x 2.5 cm. Theright ovary appears unremarkable. No adnexal mass. Left Ovary/Adnexa: The left ovary measures 2.6 x 2.7 by 2.2 cm. Theleft ovary appears unremarkable. No adnexal mass. Free Fluid: None. Other Findings: None. IMPRESSION: 1. Single live intrauterine with average ultrasound age of 12 weeks 2 days with estimated date of delivery of November 03, 2025. THIS IS AN ELECTRONICALLY VERIFIED FINAL REPORT 04/28/2025 11:00 PM - Electronically signed by Patricio Flores M.D. MJ: DONNA Report ID: [id number] Reading Location: [place] [address] Tina Barraza MD IMG OB US PROCEDURES Lalitha l Result from Last 3 Months Insurance IDPA Care Teams Cut To Length Operator Relationship Specialty Start Date End Date Tina Barraza MD [id number] [facility] [address] [place] [address] PCP - General Family Medicine 04/09/25
--- OUTSIDE RECORDS SUMMARY | 2025-05-09 14:45 | XMS_ITS | Clinical Summary ---
Author Organization [facility] at the [facility] Address [address] [place] [address] Care Team Providers Care Wire Roller Name Role Phone Tina Barraza MD Primary Care Provider [phone] Encounters Date Type Department Care Team Description 04/23/2025 7:52 AM CDT - 04/23/2025 11:59 PM CDT Hospital Encounter [facility] [address] [place] [id number] Amenorrhea, unspecified Discharge Disposition: Discharge to home or self care from Last 3 Months Social History Tobacco Use Types Packs/Day Years Used Date Smoking Tobacco: Never Assessed Comments Unknown Sex and Gender Information Value Date Recorded Sex Assigned at Not on file Legal Sex Female 1:02 PM CDT Gender Identity Not on file Sexual Orientation Not on file Plan of Treatment Health Maintenance Due Date Last Done Comments Cervical Cancer Screening 2000 Depression Screening 2000 Hepatitis C Screening 2000 DTaP/Tdap/Td Vaccine (1 - Tdap) 2011 Varicella Vaccines (1 of 2 - 13+ 2-dose series) 2013 HPV Vaccines (1 - 3-dose series) 2015 Hepatitis B Screening 2018 Regular Well Visit/Exam 18-64 2018 Influenza Vaccine (#1) 2025 Pneumococcal vaccine <65 Aged Out No longer eligible based on patient's age to complete this topic Procedures Procedure Name Priority Date/Time Associated Diagnosis [...] Present Subchorionic bleed: No Placenta: Not identified [place]-rump length: 5.8 cm heart rate: 167 bpm [...] Patricio Flores M.D. MJ: DONNA Report ID: [id number] Reading Location: [id number] Procedure Note Patricio Flores MD - 04/28/2025 EXAM DESCRIPTION: US OB UNDER 14 WEEKS REASON FOR STUDY: AMENORRHEA, UNSPECIFIED. EVALUATE FOR DATING. TECHNIQUE: Transabdominal images acquired of the pelvis. COMPARISON: No prior FINDINGS: Clinical gestational age: 12 weeks 2 days Clinical estimated Due Date: November 03, 2025 Intrauterine gestational sac: Present Subchorionic bleed: No Placenta: Not identified [place]-rump length: 5.8 cm heart rate: 167 bpm [...] Patricio Flores M.D. MJ: DONNA Report ID: [id number] Reading Location: [place] [address] Tina Barraza MD IMG OB US PROCEDURES Lalitha l Result from Last 3 Months Insurance IDND Care Teams Wire Roller Relationship Specialty Start Date End Date Tina Barraza MD [address] [place] [address] PCP - General Family Medicine 04/09/25
--- OUTSIDE RECORDS SUMMARY | 2025-05-09 14:45 | XMS_ITS | Data Portability ---
Author Organization [facility] Mallika [facility] Address [address] [place] [address] Assessment No assessment recorded. Plan of Treatment Reminders Order Date Submit Date Provider Last Modified By Organization Details Last Modified Time Details Appointments NEW OB 30 2024 02:10P M Gabby Marrufo MD Not available Not available Not available Lab test, urine 2024 025 [email or web address] In-Office Order, Internal Use Only DO Not Attach Compendium DO Not Attach Compendium, Do Not Delete/merge, [id number] 04/05/2025 11:48:57 panel 2024 025 [facility], [address] [facility], [place], [address], 04/17/2025 17:11:14 varicella zoster virus IgG Ab, QL, IA, serum 2024 025 [facility], [address] [facility], [place], [address], 04/17/2025 17:11:20 hemoglobi n S (hbs), presence, blood 2024 025 [facility], [address] [facility], [address], [place], [address], 04/17/2025 17:11:19 CFTR mutation, blood or tissue 2024 025 [facility], [address] [facility], [address], [place], [address], 04/17/2025 17:11:17 CBC w/ auto diff 2024 025 [facility], [address] [facility], [place], [address], 03/02/2025 09:03:18 CMP, serum or plasma 2024 025 [facility], [address] [facility], [place], [address], 03/02/2025 09:03:14 HbA1c (hemoglob in A1c), blood 2024 025 [facility], [address] [facility], [place], [address], 03/02/2025 09:03:17 TSH, ultra-sen sitive, serum 2024 025 [facility], [address] [facility], [address], [place], [address], 03/02/2025 09:03:16 Referral pharmacis t referral 2024 025 herman Mascorro MD, [address] [facility] , [address], [place], [address], 05/09/2025 08:35:05 Procedures None recorded. Surgeries None recorded. Imaging US, obstetric , 1st trimester - This is a dating ultrasoun d 2024 025 herman Green Scheduling, [address] [facility] , [place], [address], 05/08/2025 08:50:45 Medication Orders 28 mg iron-800 mcg tablet 2024 025 [id number], [id number], [place], [address], 04/05/2025 11:49:02 meclizine 25 mg tablet 2024 025 [email or web address] [id number], [id number], [place], [address], 04/17/2025 10:42:32 Patient TargetsNo targets recorded. Patient Instructions Encounter Date Encounter Id Patient Instructions Last Modified By Organization Details Last Modified Time 03/01/2025 [id number] A healthy lifestyle: care instructions [email or web address] Not available 03/01/2025 11:08:03 akin maneuver a t home for vertigo: exercises [email or web address] Not available 03/01/2025 11:08:03 I was present in the clinic to discuss this patient at the time of the visit. I agree with the documented assessment and plan MD doc Benito Not available 03/01/2025 11:12:49 04/05/2025 [id number] I was present in the clinic to discuss this patient at the time of the visit. I agree with the documented assessment and plan MD doc Benito Not available 04/05/2025 13:04:47 Reason for Referral Pharmacist Referral for Amen orrhea Referring Physician: Jeff Rhodes, Operations Liaison, Encounter Date: 04/05/2025 Results Created Date Observation Date Name Description Value Unit Range Abnormal Flag Note LastModifiedBy Organization Detail LastModifiedTime 03/01/2003/02/2025 COMP. METAB OLIC PANEL (14) glucose 83 mg/dL 70-99 Not Available [facility] ([facility]) [address] [place], [address], 03/02/2025 09:03:14 03/01/2003/02/2025 COMP. METAB OLIC PANEL (14) BUN 5 mg/dL 6-20 below low normal Not Available [facility] ([facility]) [address] [place], [address], 03/02/2025 09:03:14 03/01/20 25 03/02/2025 COMP. METAB OLIC PANEL (14) creatinine 0.67 mg/dL 0.57-1 .00 Not Available [facility] ([facility]) [address] [place], [address], 03/02/2025 09:03:14 03/01/20 25 03/02/2025 COMP. METAB OLIC PANEL (14) eGFR 125 mL/mi n/1.7 3 >59 Not Available [facility] ([facility]) [address] [facility] [place], [address], 03/02/2025 09:03:14 03/01/20 25 03/02/2025 COMP. METAB OLIC PANEL (14) BUN/creatini ne ratio 7 9-23 below low normal Not Available [facility] ([facility]) [address] [place], [address], 03/02/2025 09:03:14 03/01/20 25 03/02/2025 COMP. METAB OLIC PANEL (14) sodium 138 mmol/ L 134-14 4 Not Available [facility] ([facility]) [address] [place], [address], 03/02/2025 09:03:14 03/01/20 25 03/02/2025 COMP. METAB OLIC PANEL (14) potassium 4.3 mmol/ L 3.5-5. 2 Not Available [facility] ([facility]) [address] [place], [address], 03/02/2025 09:03:14 03/01/20 25 03/02/2025 COMP. METAB OLIC PANEL (14) chloride 103 mmol/ L 96-106 Not Available [facility] ([facility]) [address] [place], [address], 03/02/2025 09:03:14 03/01/20 25 03/02/2025 COMP. METAB OLIC PANEL (14) carbon dioxide, total 20 mmol/ L 20-29 Not Available [facility] ([facility]) [address] [place], [address], 03/02/2025 09:03:14 03/01/20 25 03/02/2025 COMP. METAB OLIC PANEL (14) calcium 9.0 mg/dL 8.7-10 .2 Not Available [facility] ([facility]) [address] [facility] [place], [address], 03/02/2025 09:03:14 03/01/20 25 03/02/2025 COMP. METAB OLIC PANEL (14) protein, total 7.2 g/dL 6.0-8. 5 Not Available [facility] ([facility]) [address] [facility] [place], [address], 03/02/2025 09:03:14 03/01/20 25 03/02/2025 COMP. METAB OLIC PANEL (14) albumin 4.5 g/dL 4.0-5. 0 Not Available [facility] ([facility]) [address] [facility] [place], [address], 03/02/2025 09:03:14 03/01/20 25 03/02/2025 COMP. METAB OLIC PANEL (14) globulin, total 2.7 g/dL 1.5-4. 5 Not Available [facility] ([facility]) [address] [facility] [place], [address], 03/02/2025 09:03:14 03/01/20 25 03/02/2025 COMP. METAB OLIC PANEL (14) bilirubin, total 0.6 mg/dL 0.0-1. 2 Not Available [facility] ([facility]) [address] [facility] [place], [address], 03/02/2025 09:03:14 03/01/20 25 03/02/2025 COMP. METAB OLIC PANEL (14) alkaline phosphatase 62 IU/L 44-121 Not Available [facility]) [address] [facility] [place], [address], 03/02/2025 09:03:14 03/01/20 25 03/02/2025 COMP. METAB OLIC PANEL (14) AST (SGOT) 16 IU/L 0-40 Not Available [facility] ([facility]) [address] [facility], [place], [address], 03/02/2025 09:03:14 03/01/2003/02/2025 COMP. METAB OLIC PANEL (14) ALT (SGPT) 12 IU/L 0-32 Not Available [facility] ([facility]) [address] [facility], [place], [address], 03/02/2025 09:03:14 03/01/2003/02/2025 TSH RFX ON ABNOR MAL TO FREE T4 TSH 1.830 uIU/m L 0.450- 4.500 Not Available [facility] ([facility]) [address] [facility], [place], [address], 03/02/2025 09:03:16 03/01/2003/02/2025 HEMOG LOBIN A1C hemoglobin A1C 4.9 % 4.8-5. 6 Predi abete s: 5.7 - 6.4 Diabe kai: >6.4 Glyce joseph contr ol for adult s with diabe kai: <7.0 Not Available [facility] ([facility]) [address] [place], [address], 03/02/2025 09:03:17 03/01/2003/02/2025 CBC WITH DIFFE RENTI AL/PL ATELE T WBC 7.5 x10e3 /uL 3.4-10 .8 Not Available [facility] ([facility]) [address] [place], [address], 03/02/2025 09:03:18 03/01/2003/02/2025 CBC WITH DIFFE RENTI AL/PL ATELE T RBC 4.55 x10e6 /uL 3.77-5 .28 Not Available [facility] ([facility]) [address] [place], [address], 03/02/2025 09:03:18 03/01/2003/02/2025 CBC WITH DIFFE RENTI AL/PL ATELE T hemoglobin 13.8 g/dL 11.1-1 5.9 Not Available [facility] ([facility]) [address] [facility], [place], [address], 03/02/2025 09:03:18 03/01/2003/02/2025 CBC WITH DIFFE RENTI AL/PL ATELE T hematocrit 40.3 % 34.0-4 6.6 Not Available [facility] ([facility]) [address] [facility], [place], [address], 03/02/2025 09:03:18 03/01/2003/02/2025 CBC WITH DIFFE RENTI AL/PL ATELE T MCV 89 fL 79-97 Not Available [facility] ([facility]) [address] [facility], [place], [address], 03/02/2025 09:03:18 03/01/2003/02/2025 CBC WITH DIFFE RENTI AL/PL ATELE T MCH 30.3 pg 26.6-3 3.0 Not Available [facility] ([facility]) [address] [facility], [place], [address], 03/02/2025 09:03:18 03/01/2003/02/2025 CBC WITH DIFFE RENTI AL/PL ATELE T MCHC 34.2 g/dL 31.5-3 5.7 Not Available [facility] ([facility]) [address] [place], [address], 03/02/2025 09:03:18 03/01/2003/02/2025 CBC WITH DIFFE RENTI AL/PL ATELE T RDW 12.3 % 11.7-1 5.4 Not Available [facility] ([facility]) [address] [place], [address], 03/02/2025 09:03:18 03/01/2003/02/2025 CBC WITH DIFFE RENTI AL/PL ATELE T platelets 391 x10e3 /uL 150-45 0 Not Available [facility] ([facility]) [address] [facility], [place], [address], 03/02/2025 09:03:18 03/01/20 25 03/02/2025 CBC WITH DIFFE RENTI AL/PL ATELE T neutrophils 65 % notest ab. Not Available [facility] ([facility]) [address] [facility], [place], [address], 03/02/2025 09:03:18 03/01/2003/02/2025 CBC WITH DIFFE RENTI AL/PL ATELE T lymphs 26 % notest ab. Not Available [facility] ([facility]) [address] [facility], [place], [address], 03/02/2025 09:03:18 03/01/2003/02/2025 CBC WITH DIFFE RENTI AL/PL ATELE T monocytes 7 % notest ab. Not Available [facility] ([facility]) [address] [facility], [place], [address], 03/02/2025 09:03:18 03/01/2003/02/2025 CBC WITH DIFFE RENTI AL/PL ATELE T eos 1 % notest ab. Not Available [facility] ([facility]) [address] [facility], [place], [address], 03/02/2025 09:03:18 03/01/20 25 03/02/2025 CBC WITH DIFFE RENTI AL/PL ATELE T basos 1 % notest ab. Not Available [facility] ([facility]) [address] [facility], [place], [address], 03/02/2025 09:03:18 03/01/20 25 03/02/2025 CBC WITH DIFFE RENTI AL/PL ATELE T neutrophils (absolute) 4.9 x10e3 /uL 1.4-7. 0 Not Available [facility] ([facility]) [address] [facility], [place], [address], 03/02/2025 09:03:18 03/01/20 25 03/02/2025 CBC WITH DIFFE RENTI AL/PL ATELE T lymphs (absolute) 2.0 x10e3 /uL 0.7-3. 1 Not Available [facility] ([facility]) [address] [facility], [place], [address], 03/02/2025 09:03:18 03/01/20 25 03/02/2025 CBC WITH DIFFE RENTI AL/PL ATELE T monocytes(ab solute) 0.5 x10e3 /uL 0.1-0. 9 Not Available [facility] ([facility]) [address] [facility], [place], [address], 03/02/2025 09:03:18 03/01/20 25 03/02/2025 CBC WITH DIFFE RENTI AL/PL ATELE T eos (absolute) 0.1 x10e3 /uL 0.0-0. 4 Not Available [facility] ([facility]) [address] [facility], [place], [address], 03/02/2025 09:03:18 03/01/20 25 03/02/2025 CBC WITH DIFFE RENTI AL/PL ATELE T baso (absolute) 0.1 x10e3 /uL 0.0-0. 2 Not Available [facility] ([facility]) [address] [facility], [place], [address], 03/02/2025 09:03:18 03/01/2003/02/2025 CBC WITH DIFFE RENTI AL/PL ATELE T immature granulocytes 0 % notest ab. Not Available [facility] ([facility]) [address] [facility], [place], [address], 03/02/2025 09:03:18 05/02/03/02/2025 CBC WITH DIFFE RENTI AL/PL ATELE T immature grans (abs) 0.0 x10e3 /uL 0.0-0. 1 Not Available [facility] ([facility]) [address] [facility], [place], [address], 03/02/2025 09:03:18 04/05/20 25 04/06/2025 INTER PRETA TION: interpretati on: Commen t Not infec kevin with HCV unles s early or acute infec tion is suspe cted (whic h may be delay ed in an immun ocomp romis ed indiv idual ), or other evide nce exist s to indic ate HCV infec tion. Not Available [facility] ([facility]) [address] [facility], [place], [address], 04/17/2025 17:11:13 04/05/20 25 04/06/2025 PREGN MARK, INITI AL SCREE N HBsAg screen NEGATI VE negati ve Not Available [facility] ([facility]) [address] [facility], [place], [address], 04/17/2025 17:11:14 04/05/20 25 04/06/2025 PREGN MARK, INITI AL SCREE N HCV Ab NON REACTI VE nonrea ctive Not Available [facility] ([facility]) [address] [place], [address], 04/17/2025 17:11:14 04/05/20 25 04/06/2025 PREGN MARK, INITI AL SCREE N RPR NON REACTI VE nonrea ctive Not Available [facility] ([facility]) [address] [place], [address], 04/17/2025 17:11:14 04/05/20 25 04/06/2025 PREGN MARK, INITI AL SCREE N rubella antibodies, IgG 4.29 index immune >0.99 Non-i mmune <0.90 Equiv ocal 0.90 - 0.99 Immun e >0.99 Not Available [facility] ([facility]) [address] [facility], [place], [address], 04/17/2025 17:11:14 04/05/20 25 04/06/2025 PREGN MARK, INITI AL SCREE N ABO grouping A Not Available [facility] ([facility]) [address] [facility], [place], [address], 04/17/2025 17:11:14 04/05/20 25 04/06/2025 PREGN MARK, INITI AL SCREE N Rh factor POSITI VE Pleas e note: Prior recor ds for this patie nt's ABO / Rh type are not avail able for addit ional verif icati on. Not Available [facility] ([facility]) [address] [facility], [place], [address], 04/17/2025 17:11:14 04/05/20 25 04/06/2025 PREGN MARK, INITI AL SCREE N antibody screen NEGATI VE negati ve Not Available [facility] ([facility]) [address] [facility], [place], [address], 04/17/2025 17:11:14 04/05/20 25 04/06/2025 PREGN MARK, INITI AL SCREE N HIV Ab/P24 Ag screen NON REACTI VE nonrea ctive HIV-1 /HIV- 2 antib odies and HIV-1 p24 antig en were NOT detec kevin. There is no labor atory evide nce of HIV infec tion. HIV Negat tila Not Available [facility] ([facility]) [address] [facility], [place], [address], 04/17/2025 17:11:14 04/05/20 25 04/06/2025 PREGN MARK, INITI AL SCREE N WBC 10.0 x10e3 /uL 3.4-10 .8 Not Available [facility] ([facility]) [address] [place], [address], 04/17/2025 17:11:14 04/05/20 25 04/06/2025 PREGN MARK, INITI AL SCREE N RBC 4.43 x10e6 /uL 3.77-5 .28 Not Available [facility] ([facility]) [address] [facility], [place], [address], 04/17/2025 17:11:14 04/05/20 25 04/06/2025 PREGN MARK, INITI AL SCREE N hemoglobin 13.7 g/dL 11.1-1 5.9 Not Available [facility] ([facility]) [address] [place], [address], 04/17/2025 17:11:14 04/05/20 25 04/06/2025 PREGN MARK, INITI AL SCREE N hematocrit 40.8 % 34.0-4 6.6 Not Available [facility] ([facility]) [address] [place], [address], 04/17/2025 17:11:14 04/05/20 25 04/06/2025 PREGN MARK, INITI AL SCREE N MCV 92 fL 79-97 Not Available [facility] ([facility]) [address] [place], [address], 04/17/2025 17:11:14 04/05/20 25 04/06/2025 PREGN MARK, INITI AL SCREE N MCH 30.9 pg 26.6-3 3.0 Not Available [facility] ([facility]) [address] [place], [address], 04/17/2025 17:11:14 04/05/20 25 04/06/2025 PREGN MARK, INITI AL SCREE N MCHC 33.6 g/dL 31.5-3 5.7 Not Available [facility] ([facility]) [address] [place], [address], 04/17/2025 17:11:14 04/05/20 25 04/06/2025 PREGN MARK, INITI AL SCREE N RDW 12.5 % 11.7-1 5.4 Not Available [facility] ([facility]) [address] [facility], [place], [address], 04/17/2025 17:11:14 04/05/20 25 04/06/2025 PREGN MARK, INITI AL SCREE N platelets 400 x10e3 /uL 150-45 0 Not Available [facility] ([facility]) [address] [facility], [place], [address], 04/17/2025 17:11:14 04/05/20 25 04/06/2025 PREGN MARK, INITI AL SCREE N neutrophils 72 % notest ab. Not Available [facility] ([facility]) [address] [facility], [place], [address], 04/17/2025 17:11:14 04/05/20 25 04/06/2025 PREGN MARK, INITI AL SCREE N lymphs 20 % notest ab. Not Available [facility] ([facility]) [address] [facility], [place], [address], 04/17/2025 17:11:14 04/05/20 25 04/06/2025 PREGN MARK, INITI AL SCREE N monocytes 6 % notest ab. Not Available [facility] ([facility]) [address] [facility], [place], [address], 04/17/2025 17:11:14 04/05/20 25 04/06/2025 PREGN MARK, INITI AL SCREE N eos 1 % notest ab. Not Available [facility] ([facility]) [address] [facility], [place], [address], 04/17/2025 17:11:14 04/05/20 25 04/06/2025 PREGN MARK, INITI AL SCREE N basos 1 % notest ab. Not Available [facility] ([facility]) [address] [facility], [place], [address], 04/17/2025 17:11:14 04/05/20 25 04/06/2025 PREGN MARK, INITI AL SCREE N neutrophils (absolute) 7.3 x10e3 /uL 1.4-7. 0 above high normal Not Available [facility] ([facility]) [address] [place], [address], 04/17/2025 17:11:14 04/05/20 25 04/06/2025 PREGN MARK, INITI AL SCREE N lymphs (absolute) 2.0 x10e3 /uL 0.7-3. 1 Not Available [facility] ([facility]) [address] [place], [address], 04/17/2025 17:11:14 04/05/20 25 04/06/2025 PREGN MARK, INITI AL SCREE N monocytes(ab solute) 0.6 x10e3 /uL 0.1-0. 9 Not Available [facility] ([facility]) [address] [place], [address], 04/17/2025 17:11:14 04/05/20 25 04/06/2025 PREGN MARK, INITI AL SCREE N eos (absolute) 0.1 x10e3 /uL 0.0-0. 4 Not Available [facility] ([facility]) [address] [place], [address], 04/17/2025 17:11:14 04/05/20 25 04/06/2025 PREGN MARK, INITI AL SCREE N baso (absolute) 0.1 x10e3 /uL 0.0-0. 2 Not Available [facility] ([facility]) [address] [place], [address], 04/17/2025 17:11:14 04/05/20 25 04/06/2025 PREGN MARK, INITI AL SCREE N immature granulocytes 0 % notest ab. Not Available [facility] ([facility]) [address] [facility] [place], [address], 04/17/2025 17:11:14 04/05/20 25 04/06/2025 PREGN MARK, INITI AL SCREE N immature grans (abs) 0.0 x10e3 /uL 0.0-0. 1 Not Available [facility] ([facility]) [address] [facility], [place], [address], 04/17/2025 17:11:14 04/05/20 25 04/06/2025 PREGN MARK, INITI AL SCREE N specific gravity 1.022 1.005- 1.030 Not Available [facility] ([facility]) [address] [facility], [place], [address], 04/17/2025 17:11:14 04/05/20 25 04/06/2025 PREGN MARK, INITI AL SCREE N pH 7.5 5.0-7. 5 Not Available [facility] ([facility]) [address] [facility], [place], [address], 04/17/2025 17:11:14 04/05/20 25 04/06/2025 PREGN MARK, INITI AL SCREE N urine-color YELLOW yellow Not Available [facility] ([facility]) [address] [facility], [place], [address], 04/17/2025 17:11:14 04/05/20 25 04/06/2025 PREGN MARK, INITI AL SCREE N appearance CLEAR clear Not Available [facility] ([facility]) [address] [facility], [place], [address], 04/17/2025 17:11:14 04/05/20 25 04/06/2025 PREGN MARK, INITI AL SCREE N WBC esterase NEGATI VE negati ve Not Available [facility] ([facility]) [address] [facility], [place], [address], 04/17/2025 17:11:14 04/05/20 25 04/06/2025 PREGN MARK, INITI AL SCREE N protein NEGATI VE negati ve/tra ce Not Available [facility] ([facility]) [address] [place], [address], 04/17/2025 17:11:14 04/05/20 25 04/06/2025 PREGN MARK, INITI AL SCREE N glucose NEGATI VE negati ve Not Available [facility] ([facility]) [address] [place], [address], 04/17/2025 17:11:14 04/05/20 25 04/06/2025 PREGN MARK, INITI AL SCREE N ketones NEGATI VE negati ve Not Available [facility] ([facility]) [address] [place], [address], 04/17/2025 17:11:14 04/05/20 25 04/06/2025 PREGN MARK, INITI AL SCREE N occult blood NEGATI VE negati ve Not Available [facility] ([facility]) [address] [place], [address], 04/17/2025 17:11:14 04/05/20 25 04/06/2025 PREGN MARK, INITI AL SCREE N bilirubin NEGATI VE negati ve Not Available [facility] ([facility]) [address] [place], [address], 04/17/2025 17:11:14 04/05/20 25 04/06/2025 PREGN MARK, INITI AL SCREE N urobilinogen ,semi-qn 0.2 mg/dL 0.2-1. 0 Not Available [facility] ([facility]) [address] [place], [address], 04/17/2025 17:11:14 04/05/20 25 04/06/2025 PREGN MARK, INITI AL SCREE N nitrite, urine NEGATI VE negati ve Not Available [facility] ([facility]) [address] [facility], [place], [address], 04/17/2025 17:11:14 04/05/20 25 04/06/2025 PREGN MARK, INITI AL SCREE N microscopic examination COMMEN T Micro scopi c follo ws if indic ated. Not Available [facility] ([facility]) [address] [facility], [place], [address], 04/17/2025 17:11:14 04/05/20 25 04/06/2025 PREGN MARK, INITI AL SCREE N microscopic examination SEE BELOW: Micro scopi c was indic ated and was perfo rmed. Not Available [facility] ([facility]) [address] [facility], [place], [address], 04/17/2025 17:11:14 04/05/20 25 04/07/2025 PREGN MARK, INITI AL SCREE N urine culture,pren atal, w/gbs FINAL REPORT Not Available [facility] ([facility]) [address] [facility], [place], [address], 04/17/2025 17:11:14 04/05/20 25 04/08/2025 PREGN MARK, INITI AL SCREE N chlamydia trachomatis, [place] NEGATI VE negati ve Not Available [facility] ([facility]) [address] [facility], [place], [address], 04/17/2025 17:11:14 04/05/20 25 04/08/2025 PREGN MARK, INITI AL SCREE N neisseria gonorrhoeae, [place] NEGATI VE negati ve Not Available [facility] ([facility]) [address] [facility], [place], [address], 04/17/2025 17:11:14 04/05/20 25 04/06/2025 MICRO SCOPI C EXAMI NATIO N WBC 0-5 /hpf 0-5 Not Available [facility] ([facility]) [address] [facility], [place], [address], 04/17/2025 17:11:16 04/05/20 25 04/06/2025 MICRO SCOPI C EXAMI NATIO N RBC 0-2 /hpf 0-2 Not Available [facility] ([facility]) [address] [facility], [place], [address], 04/17/2025 17:11:16 04/05/20 25 04/06/2025 MICRO SCOPI C EXAMI NATIO N epithelial cells (non renal) 0-10 /hpf 0-10 Not Available [facility] ([facility]) [address] [facility], [place], [address], 04/17/2025 17:11:16 04/05/20 25 04/06/2025 MICRO SCOPI C EXAMI NATIO N casts None seen /lpf nonese en Not Available [facility] ([facility]) [address] [facility], [place], [address], 04/17/2025 17:11:16 04/05/20 25 04/06/2025 MICRO SCOPI C EXAMI NATIO N bacteria Few nonese en/few Not Available [facility] ([facility]) [address] [facility], [place], [place], [address], 04/17/2025 17:11:16 04/05/20 25 04/17/2025 CYSTI C FIBRO SIS, 97 VARIA NTS ethnicity COMMEN T Not Provi ded Not Available [facility] ([facility]) [address] [place], [address], 04/17/2025 17:11:17 04/05/20 25 04/17/2025 CYSTI C FIBRO SIS, 97 VARIA NTS specimen type COMMEN T Whole Blood Not Available [facility] ([facility]) [address] [place], [address], 04/17/2025 17:11:17 04/05/20 25 04/17/2025 CYSTI C FIBRO SIS, 97 VARIA NTS indication COMMEN T Debra er Test / Scree molly Not Available [facility] ([facility]) [address] [facility], [place], [address], 04/17/2025 17:11:17 04/05/20 25 04/17/2025 CYSTI C FIBRO SIS, 97 VARIA NTS result: COMMEN T NEGAT TILA Not Available [facility] ([facility]) [address] [facility], [place], [address], 04/17/2025 17:11:17 04/05/20 25 04/17/2025 CYSTI C FIBRO SIS, 97 VARIA NTS interpretati on COMMEN T Negat tila Resul ts Disor ders (Gene ) Resul t Inter preta tion Cysti c fibro sis NEGAT TILA This resul t reduc es, CFTR NM_00 0492. 4 but does not elimi daniel, the risk to be a debra er. Risk: At reduc ed risk for an affec kevin pregn mark. For ethni c-spe cific risk amparo ions see Infor stuart n Table . Not Available [facility] ([facility]) [address] [facility], [place], [address], 04/17/2025 17:11:17 04/05/20 25 04/17/2025 CYSTI C FIBRO SIS, 97 VARIA NTS recommendati ons COMMEN T If the above resul t is posit tila, jarrod ic couns rikki is recom tonny d to discu ss the poten tial clini christiana and/o r repro ducti ve impli catio ns, as well as recom menda tions for testi ng famil y membe rs and, when appli cable , this indiv idual 's partn er. Jarrod ic couns elióscar servi malik are avail able. To acces s [facility]rod [facility] Couns flip flores e visit [email or web address] :[email or web address] [email or web address] [email or web address] -coun shayne g or call [phone]) -[facility] ([phone]). Not Available [facility] ([facility]) [address] [facility], [place], [address], 04/17/2025 17:11:17 04/05/20 25 04/17/2025 CYSTI C FIBRO SIS, 97 VARIA NTS additional clinicalinfo rmation COMMEN T Cysti c fibro sis (CF) is an autos omal reces sive disor kevin with varia ble sever ity and age at onset . Signs and sympt oms of class ic CF may inclu de eleva kevin sweat chlor carmen level s, progr essiv e lung disea se, pancr eatic insuf ficie ncy, and male infer tilit y. Sympt oms of mild CF may inclu de pancr eatic suffi cienc y. Sympt oms of CFTR- relat ed disor ders may inclu de pancr eatit is, bronc hiect asis, and isola kevin male infer tilit y due to conge nital absen ce of the vas defer ens (CBAV D). Treat ment is dieta ry and suppo rtive . Genot ype-t arget ed thera pies may be avail able for some indiv idual s. In sever pat affec kevin indiv idual s, lung trans plant ation may be indic ated. (PMID :2030 1428) . Not Available [facility] ([facility]) [address] [facility], [place], [address], 04/17/2025 17:11:17 04/05/20 25 04/17/2025 CYSTI C FIBRO SIS, 97 VARIA NTS comments COMMEN T This inter preta tion is based on the clini christiana infor matio n provi ded and the curre nt under stand ing of the molec ular jarrod ics of the disor kevin(s ) teste d. Infor matio n about the disor kevin(s ) teste d is avail able at https :[email or web address] om. Not Available [facility] ([facility]) [address] [facility], [place], [address], 04/17/2025 17:11:17 04/05/20 25 04/17/2025 CYSTI C FIBRO SIS, 97 VARIA NTS methods/limi tations COMMEN T Next- gener ation Seque ncing (NGS) : Genom ic regio ns of inter est in the CFTR gene are selec kevin using the Pixelapse ience (R) hybri dizat ion captu re metho d and seque nced via the Illum alexandra(R ) NGS platf orm. Seque ncing reads are align ed to the human genom e refer ence GRCh3 7/hg1 9 build . Regio ns of inter est inclu de genom ic regio ns encom passi ng targe kevin varia nts. Mami tical sensi tivit y is estim ated to be >99% for singl e nucle otide varia nts and small inser tions /laura tions . Varia nt detec tion is perfo rmed by [facility] [employer] and in-ho use algor ithms . Confi rmato ry testi ng is done by Noelle servin seque ncing . Varia nts are speci fied using the numbe ring and nomen clatu re recom tonny d by the Human Genom e Varia tion Socie ty (HGVS , http: //www .hgvs .org/ ). Varia nt class ifica tion and confi rmati on are consi stent with ACMG stand ards and guide lines (Rich ards, PMID: [id number]; Osiris, PMID: 68183 774). Mami sis is restr icted to 97 targe kevin CF varia nts, liste d below . c.54- 5940_ 273+1 0250d el210 80, c.178 G>T (p.Gl u60*) , c.223 C> T (p.Ar g75*) , c.254 G>A (p.Gl y85Gl u), c.262 _263d elTT (p.Le u88Il efs*2 2), c.273 +1G>A , c.273 +3A>C , c.274 -1G>A , c.274 G>T (p.Gl u92*) , c.313 Deacon (p.Il e105S erfs* 2), c.325 _327d elins G (p.Ty r109G lyfs* 4), c.349 C>T (p.Ar g117C ys), c.350 G>A (p.Ar g117H is), c.366 T>A (p.Ty r122* ), c.442 Deacon (p.Il e148L eufs* 5), c.489 +1G>T , c.531 delT (p.Il e177M etfs* 12), c.532 G>A (p.Gl y178A rg), c.579 +1G&g t;T, c.579 +5G>A , c.580 -1G>T , c.617 T>G (p.Le u206T rp), c.803 Deacon (p.As n268I lefs* 17), c.805 _806d elAT (p.Il e269P rofs* 4), c.935 _937d elTCT (p.Ph e312d el), c.948 delT (p.Ph e316L eufs* 12), c.988 G>T (p.Gl y330* ), c.100 0C>T (p.Ar g334T rp), c.101 3C>T (p.Th r338I le), c.104 0G>A (p.Ar g347H is), c.104 0G>C (p.Ar g347P ro), c.105 5G>A (p.Ar g352G ln), c.[10 75C>A ;1079 C>A] (p.[G ln359 Lucie;T hr360 Lucie]) , c.115 5_115 6dupT A (p.As n386I lefs* 3), c.136 4C>A (p.Al a455G mango), c.143 8G>T (p.Gl y480C ys), c.147 7C>T (p.Gl n493* ), c.151 9_152 1delA TC (p.Il e507d el), c.152 1_152 3delC TT (p.Ph e508d el), c.154 5_154 6delT A (p.Ty r515* ), c.155 8G>T (p.Va l520P he), c.157 2C>A (p.Cy s524* ), c.158 5-1G> A, c.162 4G>T (p.Gl y542* ), c.164 6G>A (p.Se r549A sn), c.164 7T>G (p.Se r549A rg), c.165 2G>A (p.Gl y551A sp), c.165 4C>T (p.Gl n552* ), c.165 7C>T (p.Ar g553* ), c.167 5G>A (p.Al a559T hr), c.167 9G>C (p.Ar g560T hr), c.168 0-1G> A, c.172 1C>A (p.Pr o574H is), c.176 6+1G> A, c.176 6+5G> T, c.182 0_190 3del8 4 (p.Me t607_ Gln63 4del) , c.191 1delG (p.Gl n637H isfs* 26), c.192 3_193 1deli nsA (p.Se r641A rgfs* 5), c.197 3_198 5deli nsAGA AA (p.Ar g658L ysfs* 4), c.197 6delA (p.As n659I lefs* 4), c.201 2delT (p.Le u671* ), c.205 1_205 2deli nsG (p.Ly s684S erfs* 38), c.205 2delA (p.Ly s684A snfs* 38), c.205 2dupA (p.Gl n685T hrfs* 4), c.212 5C>T (p.Ar g709* ), c.212 8A>T (p.Ly s710* ), c.217 5dupA (p.Gl u726A rgfs* 4), c.229 0C>T (p.Ar g764* ), c.265 7+5G> A, c.266 8C>T (p.Gl n890* ), c.273 7_273 8insG (p.Ty r913* ), c.298 8G>A (p.Gl n996= ), c.298 8+1G> A, c.303 9delC (p.Ty r1014 Thrfs *9), c.306 7_307 2delA TAGTG (p.Il e1023 _Val1 024de l), c.319 6C>T (p.Ar g1066 Cys), c.326 6G>A (p.Tr p1089 *), c.327 6C>A (p.Ty r1092 *), c.327 6C>G (p.Ty r1092 *), c.330 2T>A (p.Me t1101 Lucie), c.345 4G>C (p.As p1152 His), c.347 2C>T (p.Ar g1158 *), c.348 4C>T (p.Ar g1162 *), c.352 8delC (p.Ly s1177 Serfs *15), c.353 6_353 9delC CAA (p.Th r1179 Asnfs *12), c.358 7C>G (p.Se r1196 *), c.361 1G>A (p.Tr p1204 *), c.365 9delC (p.Th r1220 Lysfs *8), c.371 2C>T (p.Gl n1238 *), c.371 8-247 7C>T, c.374 4delA (p.Ly s1250 Argfs *9), c.375 2G>A (p.Se r1251 Asn), c.376 4C>A (p.Se r1255 *), c.377 3dupT (p.Le u1258 Phefs *7), c.384 6G>A (p.Tr p1282 *), c.388 9dupT (p.Se r1297 Phefs *5), c.390 9C>G (p.As n1303 Lucie) Limit ation s: Techn ologi es used do not detec t germl ine mosai cism and do not rule out the prese nce of large chrom osoma l aberr ation s inclu ding rearr angem ents and gene fusio ns, or varia nts in regio ns or genes not inclu ded in this test, or possi ble inter /intr ageni c inter actio ns betwe en varia nts, or repea t expan sions . Varia nt class ifica tion and/o r inter preta tion may quevedo e over time if more infor matio n becom es avail able. False posit tila or false negat tila resul ts may occur for reaso ns that inclu de: rare jarrod ic varia nts, sex chrom osome abnor malit ies, pseud ogene inter feren ce, blood trans fusio ns, bone marro w trans plant ation , somat ic or tissu e-spe cific mosai cism, misla beled sampl es, or shawn eous repre senta tion of famil y relat ionsh ips. This test was devel oped and its perfo rmanc e kezia cteri stics deter mined by [facility]. It has not been clear ed or appro jaylan by the Food and Drug Admin istra tion. Not Available [facility] ([facility]) [address] [facility], [place], [address], 04/17/2025 17:11:17 04/05/20 25 04/17/2025 CYSTI C FIBRO SIS, 97 VARIA NTS information table COMMEN T Cysti c fibro sis, 97 varia nts, risk reduc tions for indiv idual s with no famil y histo ry Popul ation Detec tion rate Pre-t est Post- test debra er debra er risk risk with negat tila resul t Ashke nazi 97% 1 in 24 1 in 767 Jewis h 55% 1 in 94 1 in 208 Ameri can Black 81% 1 in 61 1 in 316 Hispa david 78% 1 in 58 1 in 260 White 93% 1 in 25 1 in 343 Mixed or For couns eling other ethni c purpo ses, backg round consi kevin using the ethni c backg round with the most conse rvati ve risk estim ates. Not Available [facility] ([facility]) [address] [place], [address], 04/17/2025 17:11:17 04/05/20 25 04/17/2025 CYSTI C FIBRO SIS, 97 VARIA NTS references COMMEN T Avel angeles JL, Jessica rudd C, Cutjenna ng GR et al. CFTR varia nt testi ng: a techn ical stand javed of the [facility] ge of Medic al Jarrod ics and Genom ics ([facility] ). Jarrod Med 22 128 (2020 ). PMID: 52590 922 Magda T, Christopher vieira SG, Leon fitzpatrick BA, et al. Cysti c Fibro sis and Conge nital Absen ce of the Vas Defer ens. 2000 [Upda kevin 2016Dec 02]. In: Hugo MP, Jodee tenorio HH, Filiberto RA, et al., kimmy burroughs. GeneR neftaly mandujano(R) [Inte rnet] . PMID: 82913 [id number] Not Available [facility] ([facility]) [address] [facility], [place], [address], 04/17/2025 17:11:17 04/05/20 25 04/17/2025 CYSTI C FIBRO SIS, 97 VARIA NTS director review/relea se COMMEN T [place] nent Type Perfo rmed At Labor atory Direc tor Techn ical Labor atorannie Cooley , compo nent, Corpo ratio n of , PhD proce ssing [facility] , [address] , [place], [address] Techn ical Labor atory nAibal Cooley , compo nent, Corpo ratio n of , PhD mami sis er[place], [address] , [place], [address] Hernandez bradley YJTGD 9, Anibal Cooley compo nent Gómez wynn MD, PhD Corpo ratio n of [place], [address] , [place], [address] Elect arcenio ley relea sed by Jason Badillo , PhD, [facility] Not Available [facility] ([facility]) [address] [facility], [place], [address], 04/17/2025 17:11:17 04/05/20 25 04/17/2025 CYSTI C FIBRO SIS, 97 VARIA NTS pdf . Not Available [facility] ([facility]) [address] [facility], [place], [address], 04/17/2025 17:11:17 04/05/20 25 04/08/2025 HB SOLU + RFLX FRAC hemoglobin (HGB) solubility NEGATI VE negati ve Not Available [facility] ([facility]) [address] [facility], [place], [address], 04/17/2025 17:11:19 04/05/20 25 04/07/2025 RESUL T result 1 Commen t Mixed uroge nital sanford Less than 10,00 0 colon ies/m L Not Available [facility] ([facility]) [address] [facility], [place], [address], 04/17/2025 17:11:20 04/05/20 25 04/06/2025 VARIC JESICA- ZOSTE R V AB, IGG varicella zoster IgG NON REACTI VE nonrea ctive Ple ase note refer ence inter lanette quevedo e A React tila resul t is consi dered evide nce of immun ity to VZV. React tila indic ates that VZV IgG was detec kevin consi stent with previ ous infec tion and/o r vacci natio n. A Non React tila resul t indic ates that VZV IgG was not detec kevin sugge sting that immun ity has not been acqui red. Not Available [facility] ([facility]) [address] [facility], [place], [address], 04/17/2025 17:11:20 04/05/20 25 04/05/2025 pregn mark test, urine HCG positi ve Not Available In-Office Order Internal Use Only DO Not Attach Compendium DO Not Attach Compendium, Do Not Delete/merge, [id number] 04/05/2025 11:24:33 Result Notes None recorded. Problems Name Problem SNOMED Code Status Onset Date Resolution Date Notes Provider Name and Address Organization Details Recorded Time 69520995 Active 025 JEFF RHODES MD Attn: Accounting ,[address] , [place], [address] , [facility] 5 11:47:50 Problem Notes None recorded. Medical Equipment None Reported. Allergies No known drug allergies Medications Name Sig Start Date Stop Date Status Note LastModified by Organization Details LastModified Time metronidazo le 0.75 % (37.5 mg/5 gram) vaginal gel APPLY 1 APPICATOR FUL VAGINALLY EVERY DAY AT BEDTIME FOR 5 DAYS active Not Available Not Available No t Available meclizine 25 mg tablet TAKE 1 TABLET BY MOUTH EVERY DAY 04/17 completed Not Available Not Available Not Available 04/17 completed Not Available Not Available Not Available 28 mg iron-800 mcg tablet Take 1 tablet every day by oral route for 30 days. 2024 active Not Available Not Available Not Avai lable Vitals Date Recorded Body weight Body mass index (BMI) Body height Respiratory rate Heart rate Body temperature Systolic And Diastolic Provider Name and Address Organization Details Last Updated DateTime 5 47890.3 6 g 27.3 kg/m2 157.48 cm 20 /min 80 /min 98.3 [degF] 120/80 mm[Hg] Vesta Marin MA [facility] 5 10:32:33 Date Recorded Body height Respiratory rate Body temperature Heart rate Oxygen saturation Oxygen saturation in Arterial blood by Pulse oximetry Body mass index (BMI) Body weight Systolic And Diastolic Provider Name and Address Organization Details Last Updated DateTime 5 157.48 cm 18 /min 97.5 [degF] 89 /min 99 % 99 % 27.5 kg/m2 00633.9 6 g 115/77 mm[Hg] Savana lou MA [facility] 5 11:21:55 Social History Question Answer Notes LastModified by Organizat ion Details LastModified Time Tobacco Smoking Status Former Smoker vapes Savana Steen MA null, [place] - [facility] 04/05/2025 11:19:53 In The 14 Days Before Symptom Onset, Have You Had Close Contact With A Laboratory-confirm ed COVID-19 While That Case Was Ill? No Information n ot available 04/05/2025 In The 14 Days Before Symptom Onset, Have You Had Close Contact With A Person Who Is Under Investigation For COVID-19 While That Person Was Ill? No Information not available 04/05/2025 Have You Been To An Area Known To Be High Risk For COVID-19? No Information not available 04/05/2025 What Was The Date Of Your Most Recent Tobacco Screening? 04/05/2025 Information not available 04/05/2025 What Is Your Relationship Status? Information not available 04/05/2025 Are You Sexually Active? Yes Information not available 04/05/2025 Do You Have Smoke And Carbon Monoxide Detectors In Your Home? Yes Information not available 04/05/2025 Are You Passively Exposed To Smoke? No Information no t available 04/05/2025 Has Tobacco Cessation Counseling Been Provided? Yes Information not available 03/01/2025 On What Date Was Tobacco Cessation Counseling Provided? 03/01/2025 Information not available 03/01/2025 Sex: Female Functional Status Question Answer Note LastModified by Organizat ion Details LastModified Time Do you use any illicit or recreational drugs? No Information not available 04/05/2025 What is your level of alcohol consumption? None Information not available 04/05/2025 Mental Status None recorded. Family History Nothing Reported. Medical History Condition Response Headaches Y Gynecological History Statement/Question Response Flow Heavy Date of LMP 01/27/2025 Menses Monthly N Duration of Flow (days) 5 Age at Menarche 13 Current Control Method Age at First Child 20 LMP Approximate Obstetrics History GPAL:G 3 P 2 0 0 2 Type Value Full Term 2 Living 2 Total 3 Past Encounters Encounter ID Performer Location Encounter Start Date Encounter Closed Date Diagnosis/Indication Diagnosis SNOMED-CT Code Diagnosis ICD10 Code Diagnosis Note [id number] MD Daryn Benito 14 IM [address] [place] [address] 03/01/2025 10:16:52 03/15/2025 14:23:05 Overweight 563556413 E66.3 Patient educated on healthy eating habits and exercise at least 30 mins per day. A diet comprised of four to five servings of fruit, four to five servings of vegetables , and two to three servings of low-fat dairy per day, with <25 percent of daily caloric intake from fat. Dizziness 930876251 R42 Acute, ongoing.- plan to check cbc, cmp, hgA1c, and TSH- start meclizine 25 mgy daily- Akin maneuver exercise handout provided for patient.- consider neurology consult, if symptoms persist. [id number] MD Daryn Benito [address] [facility] [place] [address] 04/05/2025 10:47:44 04/10/2025 09:22:35 Amenorrhea 82411457 N91.2 Positive testLMP 01/27/25 care status 24 6381645 Z34.80 Positive test.9 weeks gestation based on LMP 01/27/25Con tinue PNVDating US pendingIni tial labs pendingFol low up 4 weeks Health Concerns Section Related Observation LastModified by Organization Detai ls LastModified Time None Recorded Concern Status LastModified by Organization Details LastModified Time None Recorded Advance Directives Directive None Recorded Payers Insurance Date Sequence Insurance Name Policy Number Policy Noriega Covered Member ID Noriega Member ID Guarantor Name 03/01/2025 SLIDING FEE SCHEDULE - DISCOUNT Queenie Mendoza 05/09/2025 1 [place] DEPARTMENT [place]ID Queenie Mendoza [id number] Queenie Mendoza 04/25/2025 2 *SELF PAY* Na sriram Mendoza Notes Date Note Type Note Provider Name and Address Organization Details Recorded Time 03/01/2025 text/html DizzinessReporte d bypatient.Quality:norman ot identify; spinning; lightheadedness Severity:no effect on daily activities Duration:intermittent episodes lasting:; lasts 5-60 minutes; attacks last 30-120 minutes Onset/Timing:most recent attacks occured 2 weeks ago Context:Vamp nicotine Modifying Factors:going from sit to stand; change in position; rapid movements Alleviating factors:holding still; sleep Aggravating factors:bending/stoopi ng; moving head; moving eyes; positional change Associated Symptoms:no ringing in the ears; no pressure in ears; no noise in the ears; no earache; no nausea; no vomiting; no facial numbness Queenie is a 24 yo F who presents with mom today with concerns of dizziness, lack of energy, for the past 2 weeks now. Dizziness- symptom started about 2 weeks ago. She reports feeling dizzy throughout the day, bending forward makes it worse. Pt reports feeling like things are moving around her when she is standing still. Vamping nicotine makes it worse. No recent illness, no fever or chills. No environmental changes in the last few weeks. Patient reports history of syncopal episode, last being about 6 years ago and was previously managed by a [place]ist in [place]. Patient reports that in the past she will feel dizzy before the onset of a migraine and then pasted out, which is why she was set up with a neurologist. She was placed on a medication that she cant remember the name. She is currently not on any medication at this time. PMHx: syncope, migraine, dizzinessPSHx: noneAllergies: noneMeds: noneFHx:SocHx:- EtOH: social occassion- Tobacco: vamp nicotine- Drug Use: noneOBGynHx: LMP january 27. Not on controlSexHx: male partner Tanesha Read MD Attn: Accounting,[address] [place], [address], [facility] 03/14/2025 14:58:20 04/05/2025 text/html Queenie is a 25y /o presenting today after positive home tests. She will like to confirm that she is . Patient reports history of irregular period but her LMP 01/27/25. Patient reports doing well but experiencing nausea and vomiting as well as decrease appetite. Patient is currently not on any medications at this time. She already started taking vitamins before this amount.Previous pregnancies - first , pt experienced bleeding throughout first . Early term at 37 weeks and no complication with the delivery of baby girl weighed 9 pounds 12 ounces. 2nd baby girl weighed 7 pounds unsure of oz. No complications with pregnancies. Pre weight: 148 OB plan: 25 y/o ; STEVE 11/03/24 based on LMP (01/27/25) Problem List: None INITIAL LABS 04/05/25 Blood Type: Rh Type: Antibody Screen: NEG CBC: VDRL/RPR: Non-reactive Urine Culture: NEG HBsAg: NEG HIV: NEG Chlamydia: NEG GC (weeks 10-12): NEG Rubella: Immune Varicella: Immune CF: SS: UDS: 10-12 weeks Dating US:; LMP: ; IUP ; STEVE based on LMP/US Pap: Vaginal Cultures: NEG GC/Chlamydia: NEG Sequential/QUAD/Matern iT21: 20-22 weeks: Anatomy Scan: concordant with dates; unremarkable 26-28 weeks: GTT: PASS CBC: Urinalysis: NEG HIV VDRL Tdap: Rhogam 36 weeks GBS: GC/Chlamydia: Limited US: Situational Awareness: Packet needs to be completed Tanesha Read MD Attn: Accounting,[address] [place], [address], [facility] 04/10/2025 09:10:45 OBGyn Episode Ob Episode Information Episode Created Date Number of Fetuses Patient Bloodtype Patient rh Status Prepregnancy Weight lbs Domestic Partner Domestic Partner Phone Father Name Hand Blocker Status 04/05/20 25 1 CLOSED Fetus Data First Name Last Name Admitted to NICU Weight (g) Sex Living Outcome Pediatric Complications Fetus ID Race Codes Race Delivery Type F [id number] Vaginal Steve Calculation Initial Steve Date Initial Exam Date Initial Exam Provider Initial Ultrasound Date Last Menstrual Period Date Ultra Sound Weeks Gestation 0 Eighteen To Twenty Week Steve Update Ultra Sound Date Fundal Height At Umbil Quickening Date Ultra Sound Latest Weeks Gestation Final Steve Confirmed By Final Steve Confirmed Date Final Steve Date Ultra Sound Latest Days Gestation 0 0 Menstrual History Last Menstrual Date Menses Monthly On Bcp Conception Prior Menses Frequency Hcg Plus Date Menarche Onset Age Delivery Information Delivery Date Delivery Type Labor Anesthesia Weeks Gestation Incision Type Labor Labor Length Hrs Delivered By Post Complications Tubal Sterilization Discharge Date Comments 0 Discharge Information Feeding Method Contraceptive Method Maternal HG B and HCT Levels Ob Episode Information Episode Created Date Number of Fetuses Patient Bloodtype Patient rh Status Prepregnancy Weight lbs Domestic Partner Domestic Partner Phone Father Name Hand Blocker Status 04/05/20 1 CLOSED Fetus Data First Name Last Name Admitted to NICU Weight (g) Sex Living Outcome Pediatric Complications Fetus ID Race Codes Race Delivery Type F [id number] Vaginal Steve Calculation Initial Steve Date Initial Exam Date Initial Exam Provider Initial Ultrasound Date Last Menstrual Period Date Ultra Sound Weeks Gestation 0 Eighteen To Twenty Week Steve Update Ultra Sound Date Fundal Height At Umbil Quickening Date Ultra Sound Latest Weeks Gestation Final Steev Confirmed By Final Steve Confirmed Date Final Steve Date Ultra Sound Latest Days Gestation 0 0 Menstrual History Last Menstrual Date Menses Monthly On Bcp Conception Prior Menses Frequency Hcg Plus Date Menarche Onset Age Delivery Information Delivery Date Delivery Type Labor Anesthesia Weeks Gestation Incision Type Labor Labor Length Hrs Delivered By Post Complications Tubal Sterilization Discharge Date Comments 1 Discharge Information Feeding Method Contraceptive Method Maternal HG B and HCT Levels Ob Episode Information Episode Created Date Number of Fetuses Patient Bloodtype Patient rh Status Prepregnancy Weight lbs Domestic Partner Domestic Partner Phone Father Name Hand Blocker Status 04/05/20 1 A Positive OPEN Fetus Data First Name Last Name Admitted to NICU Weight (g) Sex Living Outcome Pediatric Complications Fetus ID Race Codes Race Delivery Type [id number] Steve Calculation Initial Steve Date Initial Exam Date Initial Exam Provider Initial Ultrasound Date Last Menstrual Period Date Ultra Sound Weeks Gestation 04/05/2025 01/27/2025 0 Eighteen To Twenty Week Steve Update Ultra Sound Date Fundal Height At Umbil Quickening Date Ultra Sound Latest Weeks Gestation Final Steve Confirmed By Final Steve Confirmed Date Final Steve Date Ultra Sound Latest Days Gestation 0 11/03/19 26 0 Pre- Flowsheet Flowsheet Date 04/05/2025 Adams Score Blood Edema Fundus Height Fundus Units Glucose Ketones Leukocytes Nitrite Labor Signs Protein Cervic Dilation Cervic Effacement Cervic Station Type Weight in lbs Pre/Post Dialysis Refused With clothes [id number] BP Diastolic BP Location Tested BP Systolic BP Type 77 R arm 115 sitting Fetus Heart Rate Present Fetus Movement Comments Positive test. 9 w eeks gestation based on LMP 01/27/25Continue PNVDating US pending Initial labs pendingFollow up 4 weeks Menstrual History Last Menstrual Date Menses Monthly On Bcp Conception Prior Menses Frequency Hcg Plus Date Menarche Onset Age 0301/27/2025 false Delivery Information Delivery Date Delivery Type Labor Anesthesia Weeks Gestation Incision Type Labor Labor Length Hrs Delivered By Post Complications Tubal Sterilization Discharge Date Comments Discharge Information Feeding Method Contraceptive Method Maternal HG B and HCT Levels
== END 2025-05-09 14:42 | disposition home or self-care (01) ==
PROVIDERS: PCP Nurse Practitioner Family; Visit Provider Nurse Practitioner Family
DX: N91.2 Amenorrhea, unspecified (principal)
CPT/HCPCS: 76801

== ENCOUNTER 2025-08-05 08:00 | Outpatient (RCR) | payer OTHER, SELFPAY ==
--- NOTE | 2025-07-04 10:03 | OPREHPOC ---
Outpatient Therapy Plan of Care This is a Multidisciplinary Plan of Care that may contain components documented by all disciplines (PT, OT, and ST.) PT Problem 1 PT Problem #1 Knowledge Deficit PT Goal 1 Goal / Goal Update 1*independent with HEP 2* correct posture with exercises and body mechanics Target Visit 8 PT Problem 2 PT Problem #2 Pain PT Goal 1 Goal / Goal Update 1* pt report pain rating of 5/10 at worst 2* pt report standing/walking tolerance of 20 minutes Target Visit 8 PT Problem 3 PT Problem #3 Impaired Functional Mobility PT Goal 1 Goal / Goal Update pt not report pain increase with: 1* supine R hip flexion motion 2* supine R hip IR motion Target Visit 8
--- NOTE | 2025-07-04 10:03 | PTOPEVAL1 ---
Assessment and note entered by Rosana Dubose, PT Evaluation Information Assessment Status Evaluation ICD-10 Condition Codes (PT) Pain in low back M54.50,Pain in right hip M25.551 Onset April 2025 Subjective Information increase pain in back and R hip, with progression of ; she is due Oct 31, with daughter; sleeping is hard to do; have tried some stretching and moving, but does not help activity: not working outside of home, have 4 and 5 year old daughters to care for; is able to do everything at home, but have pain Reported Pain Level Pain Score 5: Self Report Additional Pain Score Comments pain range in the past week 5-7/10; sharp pain R low back, R lateral hip and mid-thigh- most of the time; most pain in butt muscle; some pain bilateral inner thigh- proximal increase pain: stand-walking 15-20 min at best decrease pain: sit, rest, heat pad no history of back pain with previous 2 pregnancies Assessment PT Clinical Summary Queenie has the diagnosis of back pain and R hip pain, with . Reports radicular pain into R buttock and to mid-lateral thigh. Sleep is disrupted due to pain. Her daughter is due Oct 31. This is her 3rd child and she does not have a history of back pain with her other pregnancies. Back index self rating of 52% limitation in activity level. With the evaluation: pain is increased with R hip flexion and IR motions and hamstring stretch in supine; in standing have slight lumbar lordosis; gross strength of LE's is good; pain over R sacrum. Skilled PT services are indicated for modalities to decrease pain, therapeutic exercises and education for HEP and posture, pain control techniques. Monitor pain as progresses. Plan of Care Interventions Hot Pack/Cold Pack,Manual Therapy,Neuro Re- education,Patient/Caregiver Education,Therapeutic Activities,Therapeutic Exercise,Other Other Interventions taping PT Services Indicated Yes Treatment Frequency and 1-2x/wk for 8 visits Duration These treatments will address the objective and functional deficits as defined above. The patient will be advanced safely and appropriately in order for the patient to progress towards his/her prior level of function. Additional exercises will be introduced and as well as a comprehensive home exercise program upon discharge, if needed, ?to ensure carryover of functional gains achieved in the clinic. This treatment plan has been reviewed and agreement upon by the patient.
--- NOTE | 2025-07-04 10:04 | PCPTNOTE ---
pt was 10 minutes late for today's eval appt.
--- NOTE | 2025-07-26 09:21 | PCPTNOTE ---
pt called and canceled today's appt.
--- NOTE | 2025-07-30 08:55 | PCPTNOTE ---
pt did not show for today's reeval appt. When I called her, she stated she was going to reschedule the appt, could not make it this AM.
--- NOTE | 2025-08-05 08:20 | PCPTNOTE ---
pt was 15 minutes late for today's reeval appt.
--- NOTE | 2025-08-05 08:49 | OPREHPOC ---
Outpatient Therapy Plan of Care This is a Multidisciplinary Plan of Care that may contain components documented by all disciplines (PT, OT, and ST.) PT Problem 1 PT Problem #1 Knowledge Deficit PT Goal 1 Goal / Goal Update 1*independent with HEP 2* correct posture with exercises and body mechanics 08-05-25 d/c goals met Target Visit 8 Progress Met PT Problem 2 PT Problem #2 Pain PT Goal 1 Goal / Goal Update 1* pt report pain rating of 5/10 at worst 2* pt report standing/walking tolerance of 20 minutes 08-05-25 d/c goals met Target Visit 8 Progress Met PT Problem 3 PT Problem #3 Impaired Functional Mobility PT Goal 1 Goal / Goal Update pt not report pain increase with: 1* supine R hip flexion motion 2* supine R hip IR motion 08-05-25 d/c goals met Target Visit 8
--- NOTE | 2025-08-05 08:49 | PTOPDC ---
Assessment and note entered by Rosana Dubose, PT Assessment Status Discharge ICD-10 Condition Codes (PT) Pain in low back M54.50,Pain in right hip M25.551 Onset April 2025 Subjective Information back is better; wake up at night due to the baby moving around and kicking; have 10 more weeks to go; with walking, get dizzy and have to sit down, can feel them coming on and can sit down, last few minutes; have fallen a few times due to dizzy/ going to pass out; feel like it may be her blood pressure, do not have a cuff at home; have been doing the exercises at home; ready to be finished with therapy. Reported Pain Level Pain Score Self Report Additional Pain Score Comments no pain in her back in the past week; can be up/walking as much as I need to, unless the dizziness hits me, then have to sit down; Assessment PT Clinical Summary Queenie has received 7 PT sessions. She has improved since evaluation and today with report of NO pain, back index functional self rating of 8% limitation in activity level; no pain with supine R hip motions, good strength of hips and education for HEP and body mechanics. The goals were achieved. Discharge PT services. She is to continue with the HEP. Plan of Care PT Services Indicated No
== END 2025-08-05 09:31 | disposition home or self-care (01) ==
LOC: ANHPT 08:00
PROVIDERS: Visit Provider Obstetrics & Gynecology
DX: O99.891 Other specified diseases and conditions complicating pregnancy (principal); M54.9 Dorsalgia, unspecified; O26.892 Other specified pregnancy related conditions, second trimester; M25.539 Pain in unspecified wrist
CPT/HCPCS: 97110; 97140; 97161; 97530

== ENCOUNTER 2025-08-05 09:13 | Outpatient (CLI) | payer OTHER, SELFPAY ==
--- OUTSIDE RECORDS SUMMARY | 2025-08-05 09:57 | XMS_ITS | Clinical Summary ---
Author Organization [facility] at the [facility] Address [address] [place] [address] Care Team Providers Care Physician Asst Name Role Phone Tina Barraza MD Primary Care Provider [phone] Social History Tobacco Use Types Packs/Day Years [...] on patient's age to complete this topic Insurance IDPA Care Teams Physician Asst Relationship Specialty Start Date End Date Tina Barraza MD [facility] [place] [facility] [place] [facility] [address] [place] [address] PCP - General Family Medicine 04/09/25
--- OUTSIDE RECORDS SUMMARY | 2025-08-05 09:57 | XMS_ITS | Clinical Summary ---
Author Organization [facility] Address [address] [place] [address] Care Team Providers Care Wool And Pelt Grader Name Role Phone Unavailable Primary Care Provider Unavailabl e Source Comments [facility],non-owned Affiliates and Associated Physician Practices is amultiple site organization consisting of ambulatory clinics and hospital sitesin [place], [place], [place] and [place]. This disclosure is being madepursuant to the Care Everywhere program and may not contain all information available regarding this patient. Last updated 18.[facility] Allergies No known active allergies Encounters Date Type Department Care Team Description 06/21/2025 10:10 AM CDT - 06/21/2025 11:59 PM CDT Hospital Encounter [facility] Women's Health Maternal & Care [address] [place] [id number] Lashanda Shepherd MD Discharge Disposition: Home or Self Care from Last 3 Months Social History Tobacco Use Types Packs/Day Years Used Date Smoking Tobacco: Never Assessed Estimated Date of Delivery Comme nts Yes 10/31/2025 Based on Ultraso und Sex and Gender Information Value Date Recorded Sex Assigned at Not on file Legal Sex Female 4:18 PM CDT Gender Identity Not on file Sexual Orientation Not on file Plan of Treatment Health Maintenance Due Date Last Done Comments HIV SCREENING 2015 HPV VACCINE (1 - 3-dose series) 2015 CHLAMYDIA/GONORRHEA SCREENING 2016 HEPATITIS C SCREENING 03/12/2018 DTAP/TDAP/TD VACCINES (1 - Tdap) 2019 HEPATITIS B VACCINE (1 of 3 - 19+ 3-dose series) 2019 PAP SMEAR 2021 DEPRESSION SCREENING 10/31/2024 COVID-19 VACCINE ( - 2023-2 5 season) 2025 INFLUENZA VACCINE (#1) 2025 OB-ONE HOUR GLUCOSE 07/25/2025 OB-TDAP CURRENT 08/01/2025 06/02/2020 OB-RHOGAM INJECTION 08/08/2025 Respiratory Syncytial Virus (RSV) Vaccine Pt: or over 60 yrs (1 - Risk 1-dose series) 09/05/2025 ZOSTER VACCINE (1 of 2) 2050 HIB VACCINE Aged Out No longer eligi ble based on patient's age to complete this topic MENINGOCOCCAL (Group B) VACC INE SHARED DECISION-MAKING Aged Out No longer eligibl e based on patient's age to complete this topic MENINGOCOCCAL GROUPS A/C/Y/W VACCINE Aged Out No longer eligible b ased on patient's age to complete this topic PNEUMOCOCCAL VACCINE Aged Out No long er eligible based on patient's age to complete this topic Procedures Procedure Name Priority Date/Time Associated Diagnosis Comments SONOGRAM - COMPLETE Routine 06/21/2025 1 0:22 AM CDT Encounter for anatomic survey (HCC) Third (HCC) 20 weeks gestation of (HCC) from Last 3 Months Results * Sonogram - Complete (06/21/2025 10:22 AM CDT) Linked Results Indication ======== anatomy evaluation History ====== OB History 3. Para 2 Maternal Assessment Physical Exam Height 157 cm, 5 ft 2 in. Weight 68 kg, 149 lb. Initial weight 67 kg, 148 lb. BMI 27.25 kg/m . Initial BMI 27.07 kg/m . Weight gain 0 kg, 1 lb Method ====== Transabdominal and transvaginal ultrasound examination. View: Sufficient ========= Love . Number of fetuses: 1 Dating ====== Date Details Gest. age AMANDA Stated AMANDA 21 w + 1 d 10/31/2025 Previous U/S 05/09/2025 GA, GA 15 w + 0 d 21 w + 1 d 10/31/2025 U/S 06/21/2025 based upon AC, BPD, Femur, HC 20 w + 6 d 11/02/2025 Assigned dating based on ultrasound (GA), selected on 06/21/2025 21 w + 1 d 10/31/2025 General Evaluation Cardiac activity present. FHR 153 bpm. Presentation: cephalic Placenta: Placental site: anterior. Placental jdgr-qx-rjxnowsz os distance 66 mm. No previa seen Umbilical cord: Cord vessels: 3 vessel cord. Insertion site: normal insertion Amniotic fluid: Amount of AF: normal. MVP 4.4 cm Biometry BPD 50.6 mm 21w 2d 56% Hadlock HC 179.5 mm 20w 3d 13% Hadlock Cerebellum tr 22.5 mm 73% [place] Nuchal fold 4.2 mm AC 165.8 mm 21w 4d 59% Hadlock Femur 33.1 mm 20w 2d 17% Hadlock Humerus 30.8 mm 20w 1d 15% Ger HC / AC 1.08 -/- Hadlock Weight Calculation: EFW 392 g 37% Hadlock EFW (lb,oz) 0 lb 14 oz EFW by Hadlock ([id number]) Head / Face / Neck Biometry: CM 4.1 mm 16% Nicolaides appropriate Growth Overview Exam date GA BPD (mm) HC (mm) AC (mm) FL (mm) HL (mm) EFW (g) 06/21/2025 21w 1d 50.6 56% 179.5 13% 165.8 59% 33.1 17% 30.8 15% 392 37% Anatomy The following structures appear normal: Head / Neck Cranium. Lateral ventricles. Choroid plexus. Midline falx. Cavum septi pellucidi. Cerebellum. Cisterna magna. Thalami. Nuchal fold. Face Lips. Profile. Nose. Nasal bone. Orbits. Heart / Thorax 4-chamber view. RVOT view. LVOT view. 3-vessel view. 2-muzitw-ddoflyc view. Situs. Aortic arch view. Bicaval view. Ductal arch view. Great vessels. Right lung. Left lung. Diaphragm. Abdomen Cord insertion. Stomach. Kidneys. Bladder. Bowel. Genitals. Spine Cervical spine. Thoracic spine. Lumbar spine. Sacral spine. Extremities / Skeleton Arms. Hands. Legs. Feet. sex: female. Maternal Structures Cervix reassuring Approach - Transvaginal: Cervical length 5.00 cm Funneling absent Right Ovary Normal Left Ovary Normal Impression ========= Single live intrauterine at 21w1d The size is appropriate Anatomical survey complete with no major malformations seen within the limitations of ultrasound The amniotic fluid volume is normal The transvaginal cervical length is reassuring Comment ======== ultrasound alone cannot detect all structural, genetic, or functional , placental, or maternal abnormalities Follow-up ======== As clinically indicated Coding ====== Diagnoses Z36.3: Encounter for screening for malformations Procedures 91013: US Preg Uterus >14 weeks 79427: US Preg Uterus Transvaginal [facility] [employer] PACS Anatomical Region Laterality Modality Other 06/21/2025 10:2 2 AM CDT Harshad Morgan MD [facility] ORDERABLES Edited Result - Final from Last 3 Months Insurance
[2025-08-05 10:49] LABS: Hematocrit 31.6 % (37.0-47.0); Hemoglobin 10.6 g/dL (12.0-15.0); Mean Corpuscular HGB Conc 33.5 g/dl (32-36); Mean Corpuscular Hemoglobin 31.2 pg (26-34); Mean Corpuscular Volume 92.9 fl (80-100); Platelet Count Result 294 k/mm3 (150-375); Red Blood Count 3.40 M/mm3 (4.2-5.4); White Blood Count 10.1 K/mm3 (4.5-10.0)
[2025-08-05 11:16] LABS: Glucose 1 Hour PP 50gm Dose 107 mg/dL
[2025-08-05 11:39] LABS: Syphilis IgG/IgM Antibody Non-Reactive (Nonreactive)
[2025-08-05 11:49] LABS: HIV 1/2 Ab P24 Ag Result Negative (Negative)
== END 2025-08-05 09:14 | disposition home or self-care (01) ==
LOC: ANHLAB 09:14
PROVIDERS: Visit Provider Nurse Practitioner Obstetrics & Gynecology
DX: Z34.90 Encounter for supervision of normal pregnancy, unspecified, unspecified trimester (principal)
CPT/HCPCS: 36415; 82947; 85027; 86593; 86703; G0432

== ENCOUNTER 2025-10-28 09:34 | Outpatient (RCR) | payer OTHER, SELFPAY ==
--- NOTE | ~2025-10-28 | US_ITS ---
EXAMINATION: US OB BPP wo non-stress DATE: 10/28/2025 11:28 WORK FORCE ADVISOR INDICATION: Decreased movements TECHNIQUE: Real-time transabdominal obstetric ultrasound. FINDINGS: No prior studies for comparison. There is a single living fetus in vertex presentation. The placenta is anterior without placenta previa. cardiac activity and movement is noted with a heart rate of 137 beats per minute. SILVANO is normal measuring 7.71 cm (normal range for gestational age 7.2-22.6 cm). Biophysical profile: breathin of 2 movement: 2 of 2 tone: 2 of 2 Amniotic flud pocket: 2 of 2 Total score: 8 of 8 IMPRESSION: 1. Single living intrauterine in vertex presentation. 2: Total biophysical profile score of 8/8. Reviewed, dictated and finalized at location O. FORCE ADVISOR
[2025-10-28 10:18] VITALS: BP 122/67; PULSE 86
== END 2025-10-30 10:21 | disposition other institution (70) ==
LOC: ANHOBOP 09:34
PROVIDERS: Visit Provider Obstetrics & Gynecology
DX: O36.8130 Decreased fetal movements, third trimester, not applicable or unspecified (principal); Z3A.39 39 weeks gestation of pregnancy
CPT/HCPCS: 59025; 76819

== ENCOUNTER 2025-10-28 15:37 | Inpatient (IN) | payer OTHER, SELFPAY ==
[2025-10-28] VITALS (27 sets, daily range): BP systolic 107–149; BP diastolic 46–129; PULSE 83–105; TEMP 36.6–36.8; BMI 30.1
--- OUTSIDE RECORDS SUMMARY | 2025-10-28 15:46 | XMS_ITS | Clinical Summary ---
Author Organization [facility] Address [address] [place] [address] Care Team Providers Care Political Research Scientist Name Role Phone Unavailable Primary Care Provider Unavailabl e Source Comments [facility],non-owned Affiliates and Associated Physician Practices is amultiple site organization consisting of ambulatory clinics and hospital sitesin [place], [place], [place] and [place]. This disclosure is being madepursuant to the Care Everywhere program and may not contain all information available regarding this patient. Last updated 18.[facility] [employer] Allergies No known active allergies Social History Tobacco Use Types Packs/Day Years [...] SMEAR 2021 DEPRESSION SCREENING 10/31/2024 COVID-19 VACCINE (1 - 2024-2 6 season) 2025 INFLUENZA VACCINE (#1) 2025 OB-ONE HOUR GLUCOSE 07/25/2025 OB-TDAP CURRENT 08/01/2025 06/02/2020 OB-RHOGAM INJECTION 08/08/2025 OB-GROUP B STREP SCREEN 09/26/2025 ZOSTER VACCINE (1 of 2) 2050 HIB [...] on patient's age to complete this topic Respiratory Syncytial Virus (RSV) Vaccine Pt: or over 60 yrs (No Doses Required) Completed [place] [address] [place] [address]
--- OUTSIDE RECORDS SUMMARY | 2025-10-28 15:46 | XMS_ITS | Clinical Summary ---
Author Organization [facility] at the [facility] Address [address] [place] [address] Care Team Providers Care Coater Brake Linings Name Role Phone Tina Barraza MD Primary Care Provider [phone] Social History Tobacco Use Types Packs/Day Years [...] Depression Screening 2000 Hepatitis C Screening 2000 Varicella Vaccines (1 of 2 - 13+ 2-dose series) 2013 HPV Vaccines (1 - 3-dose series) 2015 Hepatitis B Screening 2018 Regular Well Visit/Exam 18-64 2018 Influenza Vaccine (#1) 2025 DTaP/Tdap/Td Vaccine (2 - Td or Tdap) 06/02/2030 06/02/2020 Pneumococcal vaccine <65 Aged Out No longer eligible based on patient's age to complete this topic Insurance IDPA Care Teams Coater Brake Linings Relationship Specialty Start Date End Date Tina Barraza MD [facility] [place] [facility] [address] [place] [address] PCP - General Family Medicine 04/09/25
[2025-10-28 16:36] LABS: Hematocrit 36.9 % (37.0-47.0); Hemoglobin 12.4 g/dL (12.0-15.0); Immature Granulocyte Percent A 0.7 % (0-0.5); Lymphocytes Absolute Auto 1.79 K/mm3 (0.9-3.2); Mean Corpuscular HGB Conc 33.6 g/dl (32-36); Mean Corpuscular Hemoglobin 31.0 pg (26-34); Mean Corpuscular Volume 92.3 fl (80-100); Nucleated Red Blood Cells Absolute Auto 0.000 K/mm3 (0.0-0.012); Nucleated Red Blood Cells Perc 0.0 % (0.0-0.2); Platelet Count Result 277 k/mm3 (150-375); Red Blood Count 4.00 M/mm3 (4.2-5.4); White Blood Count 9.9 K/mm3 (4.5-10.0)
--- NOTE | 2025-10-28 16:58 | WPDANESEPP ---
Anes - Eval Pre Procedure Procedure: Labor epidural Date/Time: 10/28/25 16:58 Surgeon: Drea Preop Diagnosis: Abdominal pain with contractions Pre Op Diagnosis: Induction of Labor Patient Data Age: 25 Gender: F Height: Weight: Allergies Allergy/AdvReac Type Severity Reaction Status Date / Time No Known Allergies Allergy Verified 10/28/25 09:54 Home Medications ?Medication ?Instructions ?Recorded ?Confirmed ?Type vitamins with calcium 1 tablet PO DAILY #90 tabs 08/22/25 10/28/25 Rx no.72-iron 27 mg-folic acid 1 mg tablet (M- Plus) Laboratory Tests 10/28/25 16:14 WBC 9.9 K/mm3 (4.5-10.0) RBC 4.00 L M/mm3 (4.2-5.4) Hgb 12.4 g/dL (12.0-15.0) Hct 36.9 L % (37.0-47.0) MCV 92.3 fl (80-100) MCH 31.0 pg (26-34) MCHC 33.6 g/dl (32-36) RDW 13.8 % (11.5-14.5) Plt Count 277 k/mm3 (150-375) MPV 10.8 H fl (7.4-10.4) Immature Gran % (Auto) 0.7 H % (0-0.5) Neut % (Auto) 71.4 % (45.5-73.1) Lymph % (Auto) 18.1 L % (18.3-44.2) [place] % (Auto) 8.6 H % (2.6-8.5) Eos % (Auto) 0.6 % (0-4.4) Baso % (Auto) 0.6 % (0.2-1.2) Lymph # (Auto) 1.79 K/mm3 (0.9-3.2) [place] # (Auto) 0.9 H K/mm3 (0.1-0.6) Eos # (Auto) 0.1 K/mm3 (0-0.3) Baso # (Auto) 0.1 K/mm3 (0.0-0.1) Abs Immat Gran (auto) 0.07 H K/mm3 (0.00-0.031) Absolute Neuts (auto) 7.1 H K/mm3 (1.3-6.7) Absolute Nucleated RBC 0.000 K/mm3 (0.0-0.012) Nucleated RBC % 0.0 % (0.0-0.2) : gestational age HCG: positive Patient hx anesthesia problems: none Family hx anesthesia problems: none Results Review: All pre-operative results and documents have been reviewed as part of the pre-operative evaluation. [facility] Past Medical History Medical History Contraceptive management History of vaginal delivery X 2 History of labor Anemia Migraines Surgical History Surgical History No significant past surgical history Family History Family History Unknown Malignant neoplasm of brain Father Parkinsons disease Social History Social History Smoking status: Former smoker Tobacco type: cigarettes Second hand tobacco smoke exposure: No Substance use: never Gender identity (if verbalized by the patient): Female Spiritual care concerns: No Exam Day of Procedure 10/28/25 16:58 Patient weight: overweight Heart: regular rate and rhythm
[2025-10-28 17:15] LABS: Syphilis IgG/IgM Antibody Non-Reactive (Nonreactive)
--- NOTE | 2025-10-28 17:20 | LDADM ---
This patient, Queenie Mendoza, was admitted to Labor/Delivery/Recovery 109 on 10/28/25 at 15:37. Plans for labor, pain management and were discussed with patient. Patient/family oriented to hospital policies and general routines including ID bracelet, bed and alarms, visiting hours, pain management, procedures, bathroom and other care routines, personal items, smoking policy, room service/diet and guest tray routines, security routines, and visiting hours. Patient/Family are encouraged to report perceived risks to care and to ask questions if they do not understand what they are told or what they should do. See OBIX for further documentation.
[2025-10-28] MEDS: OXYTOCIN 30 UNITS/NS 500 ML 30 UNITS/500 ML BAG IV CONT (17:48)
[2025-10-28] MEDS: LACTATED RINGERS 1,000 ML 125 ML IV CONT (17:48)
[2025-10-29] VITALS (96 sets, daily range): BP systolic 82–135; BP diastolic 18–84; PULSE 29–124; RESP 12–19; TEMP 36.8–37.1; O2SAT 86–100
[2025-10-29] MEDS: LACTATED RINGERS 1,000 ML 125 ML IV CONT ×2 (01:04→02:04)
[2025-10-29] MEDS: PHENYLEPHRINE 1,000 MCG/10 ML SYRINGE 100 MCG IV PUSH (02:04)
[2025-10-29] MEDS: OXYTOCIN 30 UNITS/NS 500 ML 30 UNITS/500 ML BAG 125 UNITS IV CONT (07:39)
--- NOTE | 2025-10-29 07:45 | PM.IMHP2 ---
H&P: HPI History of Present Illness Date/Time: 10/29/25 07:45 Chief Complaint: Induction Of labor Narrative: patient is a 25-year-old at 39 weeks. She presented to Labor and delivery on 122 with complaints of decreased movement. Her BPP was 10/10 she still had decreased movement. She was offered medical induction of labor which she agreed to. course uncomplicated. GBS negative. She has been informed of risks benefits of induction of labor versus spontaneous labor. And agrees to induction of labor. Review of Systems Review of Systems: All systems reviewed & are unremarkable except as noted in HPI and below Constitutional: Constitutional: Reports no additional constitutional complaints and Denies headache(s) Eyes: Eyes: Denies spots in vision ENT: Reports system reviewed and no additional complaints, except as documented and Denies headache(s) Cardiovascular: Cardiovascular: Denies chest pain and Denies dyspnea Respiratory: Respiratory: Denies dyspnea Gastrointestinal: Gastrointestinal: Reports no additional gastrointestinal complaints Genitourinary: Genitourinary: Reports amenorrhea Musculoskeletal: Musculoskeletal: Reports no additional musculoskeletal complaints Integumentary/Breasts: Skin/Breast: Denies breast mass and Denies rash Neurologic: Denies headache(s) Psychiatric: Psychiatric: Reports no additional psychiatric complaints PMFSH Past Medical History Medical History Contraceptive management History of vaginal delivery X 2 History of labor Anemia Migraines Surgical History Surgical History No significant past surgical history Family History Family History Unknown Malignant neoplasm of brain Father Parkinsons disease Social History Social History Years smoked: 2 Smoking status: Former smoker Tobacco type: cigarettes Second hand tobacco smoke exposure: No Substance use: never Lack of Transportation: No Lack of Food: Never True Current Housing: I Have Housing Concerned About Future Housing: No Difficulty Paying Gas/Electric Bills: No Difficulty Paying for Meds: No Currently Unemployed: No Education: High School Diploma/GED Difficulty w/ Childcare or Family Care: No Gender identity (if verbalized by the patient): Female Spiritual care concerns: No Meds Home Medications and Allergies Home Medications ?Medication ?Instructions ?Recorded ?Confirmed ?Type vitamins with calcium 1 tablet PO DAILY #90 tabs 08/22/25 10/28/25 Rx no.72-iron 27 mg-folic acid 1 mg tablet (M-Liliam Plus) Allergies Allergy/AdvReac Type Severity Reaction Status Date / Time No Known Allergies Allergy Verified 10/28/25 17:25 Vital Signs Vital Signs - 24 hr 10/28/25 17:05 10/28/25 17:11 10/28/25 17:15 Temperature 98.1 F Pulse Rate 87 95 Blood Pressure 149/129 H 118/72 110/68 Pulse Oximetry Oxygen Delivery 10/28/25 17:19 10/28/25 17:30 10/28/25 17:45 Temperature Pulse Rate 87 88 Blood Pressure 117/67 121/62 Pulse Oximetry Oxygen Delivery Room Air 10/28/25 18:00 10/28/25 18:15 10/28/25 18:30 Temperature Pulse Rate 91 93 86 Blood Pressure 114/67 120/68 117/56 L Pulse Oximetry Oxygen Delivery 10/28/25 18:45 10/28/25 19:00 10/28/25 19:15 Temperature Pulse Rate 88 87 85 Blood Pressure 119/66 114/63 114/66 Pulse Oximetry Oxygen Delivery 10/28/25 20:00 10/28/25 20:15 10/28/25 20:30 Temperature 98 F Pulse Rate 86 83 Blood Pressure 120/73 123/66 Pulse Oximetry Oxygen Delivery 10/28/25 20:45 10/28/25 21:00 10/28/25 21:15 Temperature Pulse Rate 90 90 92 Blood Pressure 123/68 126/60 123/62 Pulse Oximetry Oxygen Delivery 10/28/25 21:30 10/28/25 21:45 10/28/25 22:00 Temperature Pulse Rate 97 101 H 91 Blood Pressure 128/68 117/65 121/46 L Pulse Oximetry Oxygen Delivery 10/28/25 22:15 10/28/25 22:30 10/28/25 22:45 Temperature Pulse Rate 105 H 91 93 Blood Pressure 116/68 124/74 121/60 Pulse Oximetry Oxygen Delivery 10/28/25 23:01 10/28/25 23:15 10/28/25 23:30 Temperature Pulse Rate 89 89 94 Blood Pressure 125/74 116/64 107/54 L Pulse Oximetry Oxygen Delivery 10/28/25 23:45 10/29/25 00:00 10/29/25 00:15 Temperature 98.2 F Pulse Rate 91 89 89 Blood Pressure 122/65 112/52 L 115/64 Pulse Oximetry Oxygen Delivery 10/29/25 00:30 10/29/25 00:45 10/29/25 01:00 Temperature Pulse Rate 82 91 78 Blood Pressure 123/71 120/72 135/84 Pulse Oximetry Oxygen Delivery 10/29/25 01:15 10/29/25 01:30 10/29/25 01:32 Temperature Pulse Rate 83 81 Blood Pressure 129/70 132/74 Pulse Oximetry 86 L 100 Oxygen Delivery 10/29/25 01:36 10/29/25 01:37 10/29/25 01:38 Temperature Pulse Rate 85 82 77 Blood Pressure 110/76 113/56 L 119/56 L Pulse Oximetry 100 Oxygen Delivery 10/29/25 01:40 10/29/25 01:42 10/29/25 01:43 Temperature Pulse Rate 85 80 Blood Pressure 122/39 L 120/57 L Pulse Oximetry 100 Oxygen Delivery 10/29/25 01:45 10/29/25 01:47 10/29/25 01:48 Temperature Pulse Rate 84 75 Blood Pressure 120/49 L 120/54 L Pulse Oximetry 100 Oxygen Delivery 10/29/25 01:50 10/29/25 01:53 10/29/25 01:54 Temperature Pulse Rate 77 78 Blood Pressure 114/56 L 109/39 L Pulse Oximetry 100 Oxygen Delivery 10/29/25 01:55 10/29/25 01:58 10/29/25 01:59 Temperature Pulse Rate 77 76 Blood Pressure 104/44 L 103/47 L Pulse Oximetry 100 Oxygen Delivery 10/29/25 02:01 10/29/25 02:03 10/29/25 02:04 Temperature Pulse Rate 78 72 Blood Pressure 96/52 L 96/54 L Pulse Oximetry 100 Oxygen Delivery 10/29/25 02:05 10/29/25 02:08 10/29/25 02:09 Temperature Pulse Rate 56 L 70 Blood Pressure 122/57 L 104/53 L Pulse Oximetry 100 Oxygen Delivery 10/29/25 02:10 10/29/25 02:13 10/29/25 02:14 Temperature Pulse Rate 72 75 Blood Pressure 106/55 L 104/53 L Pulse Oximetry 100 Oxygen Delivery 10/29/25 02:15 10/29/25 02:18 10/29/25 02:19 Temperature Pulse Rate 82 78 Blood Pressure 102/57 L 105/45 L Pulse Oximetry 100 Oxygen Delivery 10/29/25 02:23 10/29/25 02:24 10/29/25 02:25 Temperature Pulse Rate 88 86 Blood Pressure 105/53 L 104/54 L Pulse Oximetry 100 Oxygen Delivery 10/29/25 02:28 10/29/25 02:29 10/29/25 02:30 Temperature Pulse Rate 85 84 Blood Pressure 102/49 L 104/52 L Pulse Oximetry 100 Oxygen Delivery 10/29/25 02:34 10/29/25 02:39 10/29/25 02:44 Temperature Pulse Rate Blood Pressure Pulse Oximetry 100 100 100 Oxygen Delivery 10/29/25 02:45 10/29/25 02:49 10/29/25 02:54 Temperature Pulse Rate 77 Blood Pressure 106/54 L Pulse Oximetry 99 100 Oxygen Delivery 10/29/25 02:59 10/29/25 03:00 10/29/25 03:04 Temperature Pulse Rate 79 Blood Pressure 103/64 Pulse Oximetry 100 100 Oxygen Delivery 10/29/25 03:09 10/29/25 03:14 10/29/25 03:15 Temperature Pulse Rate 85 Blood Pressure 102/66 Pulse Oximetry 100 100 Oxygen Delivery 10/29/25 03:19 10/29/25 03:24 10/29/25 03:29 Temperature Pulse Rate Blood Pressure Pulse Oximetry 99 100 98 Oxygen Delivery 10/29/25 03:30 10/29/25 03:34 10/29/25 03:39 Temperature Pulse Rate 79 Blood Pressure 101/43 L Pulse Oximetry 99 99 Oxygen Delivery 10/29/25 03:44 10/29/25 03:45 10/29/25 03:49 Temperature Pulse Rate 76 Blood Pressure 104/53 L Pulse Oximetry 99 100 Oxygen Delivery 10/29/25 03:54 10/29/25 04:00 10/29/25 04:15 Temperature Pulse Rate 76 72 Blood Pressure 116/63 117/64 Pulse Oximetry 99 Oxygen Delivery 10/29/25 04:30 10/29/25 04:45 10/29/25 05:00 Temperature Pulse Rate 84 73 81 Blood Pressure 101/48 L 106/51 L 86/68 L Pulse Oximetry Oxygen Delivery 10/29/25 05:15 10/29/25 05:30 10/29/25 05:45 Temperature Pulse Rate 77 83 83 Blood Pressure 111/69 115/69 127/67 Pulse Oximetry Oxygen Delivery 10/29/25 06:00 10/29/25 06:13 10/29/25 06:15 Temperature Pulse Rate 90 90 Blood Pressure 116/74 124/77 Pulse Oximetry 97 Oxygen Delivery 10/29/25 06:31 10/29/25 06:39 10/29/25 06:42 Temperature Pulse Rate 124 H 91 Blood Pressure 82/18 L 110/84 Pulse Oximetry 100 Oxygen Delivery 10/29/25 06:44 10/29/25 06:45 10/29/25 06:49 Temperature Pulse Rate 86 Blood Pressure 123/77 Pulse Oximetry 100 100 Oxygen Delivery 10/29/25 06:54 10/29/25 06:59 10/29/25 07:00 Temperature Pulse Rate 113 H Blood Pressure 129/70 Pulse Oximetry 99 100 Oxygen Delivery 10/29/25 07:04 10/29/25 07:05 10/29/25 07:15 Temperature Pulse Rate 104 H Blood Pressure 126/84 Pulse Oximetry 100 100 Oxygen Delivery 10/29/25 07:30 10/29/25 07:45 Temperature Pulse Rate 99 76 Blood Pressure 115/53 L 120/65 Pulse Oximetry Oxygen Delivery Exam Const: General: no acute distress Eyes: General: appearance normal, both eyes and all related structures Resp: Effort & Inspection: normal respiratory effort Cardio: Rate: regular rate GI: Other: Gravid no fundal tenderness no right upper quadrant pain Skin: General skin exam: no rashes or lesions noted Neuro: Cognition (Neuro): normal cognition Extrem: General: normal to inspection Psych: Mental Status: mental status grossly normal Results Labs Labs: Short CBC 10/28/25 Range/Units 16:14 WBC 9.9 (4.5-10.0) K/mm3 Hgb 12.4 (12.0-15.0) g/dL Hct 36.9 L (37.0-47.0) % Plt Count 277 (150-375) k/mm3 Assessment and Plan Assessment and plan (1) Encounter for induction of labor: Code(s): Z34.90 - Encounter for supervision of normal , unspecified, unspecified trimester Status: Acute Assessment and Plan: 1. Admit 2. Pitocin induction.
--- NOTE | 2025-10-29 07:51 | PM.OBPRVD ---
OB - Vaginal Delivery Note Procedure Delivery date: 10/29/25 Induction method: Per Pitocin Protocol Delivery monitor: External FHT Route of delivery: Episiotomy description: None Quantitative Blood Loss (ml): 150 Anesthesia type: Epidural Disposition: Floor Complications: No immediate complications Baby Date of : 10/29/25 Time of : 07:04 Gestational Age by Date: 39 Infant gender: Female Weight (pounds): 8 Weight (ounces): 15 presentation: vertex position: Right Occiput Anterior Placenta delivery description: Spontaneous Cord Vessel Description: 3 Vessels, Clamped/Cut and Around Extremity ( x1) score one minute: 8 score five minutes: 9 Narrative: She was admitted for medical induction of labor. She had Pitocin induction. She had spontaneous rupture membranes. She progressed to active labor and progressed to complete she delivered a female . Nose and mouth suction at the perineum. The rest the was delivered atraumatically and placed on maternal abdomen crying vigorously. The cord was noted to be wrapped around the lower foot. Loose. The cord was doubly clamped and cut. Cord gases was obtained. Cord blood obtained. Pitocin was started. Placenta delivered spontaneously and intact. No lacerations. Sponge count correct.
[2025-10-29] MEDS: IBUPROFEN 600 MG TABLET PO (09:20)
[2025-10-29] MEDS: ACETAMINOPHEN 325 MG TABLET 650 MG PO (10:40)
--- NOTE | 2025-10-29 17:00 | PC.NURSE ---
1630. Introductions were made, then consulted with?patient?to assess needs related to .Discussed?with?mother?her plans to feed her infant and the experience so far. is currently on blood sugars, and so far per moms request has only wanted to bottle feed infant so far. Will call for help with needs. ?Encouraged mother to express any questions or concerns she has?regarding?feedings.?Advised?her to?call out for a latch check or if she needs?assistance?waking or positioning baby.?Reviewed?the blue feeding worksheet?for required output?and feeding at least 8-12 times every 24 hours. Resources provided for inpatient and outpatient services with the feeding sheet, mom/baby guide, and name/number?written on the communication board. Mother voiced understanding of information and will call if there is a request for?assistance. Reported to the Primary RN?
[2025-10-30 04:20] VITALS: BP 112/73; PULSE 75; RESP 17; TEMP 36.8; O2SAT 98
[2025-10-30 05:30] LABS: Hematocrit 33.9 % (37.0-47.0); Hemoglobin 11.3 g/dL (12.0-15.0)
--- NOTE | 2025-10-30 07:13 | P.PNOB_ITS ---
OB - PN: Subj Subjective Date/time seen: 10/30/25 07:13 Patient comments: pain well controlled, tolerating diet and other (Decreasing lochia.) baby status: doing well and nursing well OB - PN: Obj Data Labs 10/30/25 04:21 Labs: Laboratory Results - last 24 hr 10/30/25 04:21 Hgb 11.3 L Hct 33.9 L OB - PN A/P Assessment and Plan (1) Vaginal delivery: Code(s): O80 - Encounter for full-term uncomplicated delivery Status: Acute Assessment and Plan: Doing well. She request discharge to home today. Discharge precautions discussed. Plan day: 1 Plan: routine care Comments: Patient doing well. Time Spent With Patient Time: Total time spent is greater than 50% in coordination of care (as documented) at patient's floor/unit and/or counseling patient: Exam 2 Psych: Affect: normal affect Other: Abd: fundus firm below umbilicus, nontender Perineum: healing Ext: nontender
--- NOTE | 2025-10-30 07:14 | PM.OBDSVD ---
DS: Admitting Diagnosis Discharge Date 10/30/25 Admitting Diagnosis Induction of labor DS: Discharge Diagnosis Discharge Diagnosis (1) Vaginal delivery: Code(s): O80 - Encounter for full-term uncomplicated delivery Status: Acute (2) Encounter for induction of labor: Code(s): Z34.90 - Encounter for supervision of normal , unspecified, unspecified trimester Status: Acute OB - DS: Summary Hospital Course Hospital Course: She was admitted for induction of labor. She had a vaginal delivery. She did well , baby did well. She requested discharge to home on day 1. She had adequate pain control, ambulating well, decreased lochia on day 1. OB Procedures : Ultrasound OB Procedures Intrapartum: Spontaneous Vag Delivery OB Procedures: : None Peripartum Data Delivery Method: Natural Vaginal Episiotomy description: None complications: none Status at Discharge Functional status at discharge: independent ambulation Time Spent with Patient Time attestation: Total time spent providing and/or coordinating discharge services: Exam Const: General: cooperative Orientation/consciousness: oriented to person, oriented to place and oriented to time HENMT: Face/Nose/Sinus: Normal external nose present Eyes: General: appearance normal, both eyes and all related structures Resp: Effort & Inspection: normal respiratory effort GI: Inspection: normal to inspection Skin: General skin exam: normal color Neuro: General: oriented to person, oriented to place and oriented to time Extrem: General: normal to inspection and no calf tenderness Psych: Appearance: grossly normal Mental Status: mental status grossly normal DS: Data Data Completed and Pending Labs on day of discharge: Labs from last 24 hours 10/30/25 04:21 Hgb 11.3 L Hct 33.9 L Discharge Plan Discharge Attending physician on discharge: Harshad Pina Consulting providers: Gerardo Sung Jr. Discharging Clinician: Harshad Pina Anticipated Discharge Date/Time: 10/30/25 08:03 Patient Disposition: Home Activity: may shower and pelvic rest Diet: regular Patient Instructions: Antibiotic Form Patient Language: Welsh Stand Alone Forms: General Discharge Information Follow-up/Referrals: Harshad Pina MD [Physician, [facility]] - Call for Appointment Referral Note: 4 week follow up Discharge Medications: Continued M-Liliam Plus 27 mg iron- 1 mg tablet 1 tablet PO DAILY Qty: 90 0RF Date of admission: 10/28/25 15:37 Primary Care Provider: PHYSICIAN,INFECTIOUS DISEASE TECHNICIAN Admitting Provider: Harshad Pina Attending physician on admission: Harshad Pina Condition: Stable
[2025-10-30 07:45] VITALS: BP 118/82; PULSE 60; RESP 14; TEMP 36.7; O2SAT 100
--- NOTE | 2025-10-30 08:51 | WPDANLDPN2 ---
Anes-Prog Note L&D Date/Time: 10/30/25 08:51 Comfortable throughout: labor and delivery Neuraxial method: epidural Epidural/Spinal procedure site: clean & non-tender Neuro status: Neuro function grossly intact. Cardiovascular status: normal Respiratory status: normal Airway patency: baseline Mental status: baseline Post-Op hydration status: normal Vital Signs: Last Vital Signs Temp 36.7 C 10/30/25 07:45 Pulse 60 10/30/25 07:45 Resp 14 10/30/25 07:45 BP 118/82 10/30/25 07:45 Pulse Ox 100 10/30/25 07:45 O2 Del Method Room Air 10/29/25 19:25 Pain score (VAS): 1 I/O: Intake & Output 10/29/25 10/30/25 10/30/25 23:59 07:59 15:59 Intake Total 550 Balance 550 Post-procedural complaints: none Patient feedback: Patient satisfied with anesthetic care.
--- NOTE | 2025-10-30 11:03 | PC.NURSE ---
Consulted with mother concerning needs and she shared that her plan is to pump and bottle feed infant once she went home later today, she will have an electric breast pump at home that she ordered through her insurance. Discussed with mother that she really needed to start pumping now to protect her milk supply, she declined using an electric breast pump but was open to using a manual hand pump. Breast pump kit given and instructions given on cleaning, care, usage, that there should be no pain, pumping schedule for milk production, collection, and storage of human milk. Patient was assessed for correct placement, flange size, to pump for comfort and nipple stretching/stimulation for adequate milk production every 3 hours (8 times in 24 hours) 1-2 times at night. Parents are encouraged to record the pumping schedule on the feeding sheet.?Mother voiced understanding of the education shared along with mom/baby guide and the pump measurement, flange fit handout for additional resource information. Mother is feeding appropriately for growth of and understands stimulating to eat if needed. has had appropriate feedings in the last 24 hours meets the outcomes for weight, output, blood sugar and jaundice at this time. Reinforced understanding of milk production, transition of milk, signs of adequate intake, transition of stool, prevention/relief of engorgement, plugged ducts, mastitis, responsive watching for feeding cues, community resources, and when to call a provider using the resource of the feeding sheet along with the mom and baby guide. Mother voiced understanding of the information shared, is confident to continue effectively feed her infant at home and how to use her breast pump, when to call for assistance, denies any additional assistance or education at this time. Reported to the Primary RN.
[2025-11-01 10:35] VITALS: BP 114/71; PULSE 78; RESP 18; TEMP 36.8; O2SAT 98
== END 2025-10-30 17:30 | disposition home or self-care (01) | DRG 560 ==
LOC: ANHLDR 15:44 → ANHOB2 10-29 09:59
PROVIDERS: Admitting Provider Obstetrics & Gynecology; Visit Provider Obstetrics & Gynecology
DX: O36.8130 Decreased fetal movements, third trimester, not applicable or unspecified (principal); Z37.0 Single live birth; Z3A.39 39 weeks gestation of pregnancy; O69.82X0 Labor and delivery complicated by other cord entanglement, without compression, not applicable or unspecified
CPT/HCPCS: 36415; 85014; 85018; 85025; 86593; 86850; 86900; 86901; A9270; J2371; J2590; J2795; J7120